=== PATIENT | female | born 1970 | race Caucasian/White ===

== ENCOUNTER 2021-02-06 11:25 | Outpatient (CLI) | payer SELFPAY ==
--- NOTE | 2021-02-06 11:37 | XR_ITS ---
WS: [id number] RIGHT HAND: 3 VIEW(S) TECHNIQUE: PA, oblique and lateral. HISTORY: HAND PAIN, RIGHT COMPARISON: None available. No acute fracture or dislocation. Mild soft tissue edema along the medial hand. No foreign body. XR/XR hand RT min 3V* 00250 IMPRESSION: Mild soft tissue edema along the medial hand. Otherwise negative.
== END 2021-02-06 11:26 | disposition home or self-care (01) ==
PROVIDERS: PCP Nurse Practitioner Family; Visit Provider Nurse Practitioner Family
DX: M79.641 Pain in right hand (principal); R60.0 Localized edema
CPT/HCPCS: 73130

== ENCOUNTER 2021-08-06 19:18 | Emergency (ER) | payer SELFPAY ==
--- NOTE | 2021-08-06 19:27 | XRR_ITS ---
PROCEDURE INFORMATION: Exam: XR Chest Exam date and time: 08/06/2021 7:27 PM Age: 50 years old Clinical indication: Chest wall pain; Additional info: Chest pain TECHNIQUE: Imaging protocol: XR of the chest. Views: 1 view. COMPARISON: CR Chest 1 [place] [id number] 04/04/2019 10:32 PM FINDINGS: Lungs: Unremarkable. No consolidation. Pleural spaces: Unremarkable. No pleural effusion. No pneumothorax. Heart/Mediastinum: Unremarkable. No cardiomegaly. Bones/joints: Unremarkable. XR/XR chest 1V portable [id number] IMPRESSION: No acute findings. Radiation Dose CTDIVOL = (mGy): DLP = (mGy-cm)
--- NOTE | 2021-08-06 19:27 | ECG_ITS ---
[facility] Test Date: 2021-08-06 Pat Name: Patricia East Department: Room: Gender: Female Post Framer: : 1970 Requested By: Vernon Aquino Order Number: [id number] Vikas MD: Lena Regalado M.D. Measurements Intervals [place] Rate: 101 P: 81 MS: 147 QRS: 71 QRSD: 78 T: 67 QT: 358 QTc: 465 Interpretive Statements SINUS TACHYCARDIA Compared to ECG 04/04/2019 23:45:45 Sinus rhythm no longer present Electronically Signed On 08-07-2021 12:10:33 CABINET MAKER by Lena Regalado M.D. [id number]
[2021-08-06 20:10] VITALS: BP 122/73; PULSE 101; RESP 16; TEMP 36.4; O2SAT 98; BMI 24.1
--- NOTE | 2021-08-06 20:18 | ED_ITS ---
HPI - Chest Pain General: Chief Complaint: Chest Pain Stated Complaint: CP Time Seen by Provider: 08/06/21 20:18 History of Present Illness: HPI narrative: Ms. Juarez is a 50-year-old lady with significant past medical history of hypertension, migraines, and tobaccoism who presents emergency department due to chest pain. She has been at her baseline health and earlier today bent over. When she stood up she had sudden onset midsternal chest discomfort which was burning in nature and moderate to severe in intensity. This occurred after a hug. this has since persisted. Is worse with deep inspiration and there is mild radiation with tingling in her l eft fingertips. She has generalized malaise associated with this and over the past few days. She denies other specific changes in health. No similar episodes in the past. No other specific exacerbating or alleviating factors identified. Review of Systems General: Reports: 10 or more systems reviewed and unremarkable except in HPI and below Physical Exam Narrative: EXAM NARRATIVE: GENERAL/CONSTITUTIONAL - well-appearing. No acute distress. Eyes -no scleral icterus, no conjunctival injection ENMT - Atraumatic external nose and ears. Moist mucous membranes NECK - supple. trachea midline CARDIOVASCULAR - regular rate and rhythm. Peripheral pulses 2+ and equal RESPIRATORY -clear to auscultation bilaterally. No retractions or accessory muscle use. ABDOMEN/GI - Nontender/Nondistended. MSK - Extremities without obvious deformity or tenderness to palpation SKIN - Warm, Dry NEURO - alert and appropriately oriented. Moves all extremities equally. Course ED course: - Patient was seen and evaluated by me at bedside - Patient placed on cardiac monitors, IV access obtained - Initial evaluation notable for no acute distress, nontoxic appearance. - Labs notable for no leukocytosis, normal hemoglobin. Metabolic panel notable for hyponatremia and hypochloremia with decreased bicarb and mildly increased anion gap. The exact etiology of this is unclear. The patient reports drinking a lot of water. This finding may explain some of the patient's malaise and generalized symptoms. Delta troponin negative. - Imaging notable for negative chest x-ray - Upon serial reexamination after treatment the patient was similar. I had ordered IV fluids which the patient declined for somewhat unclear reasons. - Based on patient history, evaluation, labs, and imaging as interpreted the most likely cause of the patient's condition is chest pain and hyponatremia both of unclear etiology - The results of ED evaluation were discussed with the patient. I recommended admission and explained heart score risk stratification for major adverse cardiac events. This patient is moderate risk. After discussion and explanation methodology the patient elects for outpatient follow-up which will be ordered via case management. - Patient discharged in satisfactory condition. Vital Signs: Vital signs: Vital Signs Temperature 97.6 F 08/06/21 20:10 Pulse Rate 101 H 08/06/21 22:33 Respiratory Rate 18 08/06/21 22:33 Blood Pressure 122/73 08/06/21 22:33 Pulse Oximetry 93 08/06/21 22:33 MDM - Chest Pain Medical Records: Attestation: I reviewed the patient's medical records. Lab Data: Attestation: I reviewed the patient's lab results. Labs: Lab Results 08/06/21 08/06/21 08/06/21 20:25 20:25 20:25 WBC 5.8 10^3/uL 10^3/ uL (4.0-10.0) RBC 3.84 10^6/uL L 10 ^6/uL (4.1-5.3) Hgb 12.4 g/dL g/dL (11.5-15.3) Hct 33.8 % L % (37.0-47.0) MCV 88.0 fl fl (81-99) MCH 32.3 pg pg (28.0-34.0) MCHC 36.7 g/dL H g/dL (30.0-36.0) RDW 12.7 % % (12.1-15.1) Plt Count 294 10^3/cmm 10^3 /cmm (130-400) MPV 9.2 fL fL (7.4-10.4) Neut % (Auto) 44.2 % % Lymph % (Auto) 40.9 % % [place] % (Auto) 9.1 % % Eos % (Auto) 3.4 % % Baso % (Auto) 2.2 % % Neut # (Auto) 2.58 10^3/uL 10^3 /uL (1.8-7.7) Lymph # (Auto) 2.4 10^3/uL 10^3/ uL (0.8-4.8) [place] # (Auto) 0.5 10^3/uL 10^3/ uL (0.2-0.9) Eos # (Auto) 0.2 10^3/uL 10^3/ uL (0.0-0.8) Baso # (Auto) 0.1 10^3/uL 10^3/ uL (0.0-0.1) Nucleated RBC % (a uto) 0 % % Nucleated RBCs # 0.0 /100WBC /100W BC D-Dimer 0.35 ug/mIFEU ug/ mIFEU (0-0.59) Sodium 125 mmol/L L mmol /L (136-145) Potassium 3.7 mmol/L mmol/L (3.5-5.1) Chloride 91 mmol/L L mmol/ L (98-107) Carbon Dioxide 18 mmol/L L mmol/ L (22-29) Anion Gap 19.7 H (5-19) BUN 4 mg/dL L mg/dL (6-20) Creatinine 0.4 mg/dL L mg/dL (0.5-0.9) GFR Calculation 170.4 mL/min H mL /min (90-130) Glucose 71 mg/dL mg/dL (65-115) Calculated Osmolal ity 255 mOsm/kg L mOs m/kg (285-295) Calcium 8.4 mg/dL L mg/dL (8.5-10.5) Total Bilirubin 0.2 mg/dL mg/dL (0.15-1.2) AST 38 U/L H U/L (0-32) ALT 15 U/L U/L (0-33) Alkaline Phosphata se 66 IU/L IU/L (35-105) Troponin T Baselin e Troponin T 120 Min [place] Delta Troponin T NT-Pro-B Natriuret Pep 190 pg/mL H pg/mL (0-125) Total Protein 7.1 g/dL g/dL (6.6-8.7) Albumin 4.0 g/dL g/dL (3.5-5.2) Globulin 3.1 g/dL g/dL (1.3-4.6) Lipase 31 U/L U/L (13-60) 08/06/21 08/06/21 20:25 22:10 WBC RBC Hgb Hct MCV MCH MCHC RDW Plt Count MPV Neut % (Auto) Lymph % (Auto) [place] % (Auto) Eos % (Auto) Baso % (Auto) Neut # (Auto) Lymph # (Auto) [place] # (Auto) Eos # (Auto) Baso # (Auto) Nucleated RBC % (a uto) Nucleated RBCs # D-Dimer Sodium Potassium Chloride Carbon Dioxide Anion Gap BUN Creatinine GFR Calculation Glucose Calculated Osmolal ity Calcium Total Bilirubin AST ALT Alkaline Phosphata se Troponin T Baselin e 6 ng/L ng/L (0-10) Troponin T 120 Min [place] 6.00 ng/L ng/L (0-10) Delta Troponin T 0 ABS# ABS# (0-10) NT-Pro-B Natriuret Pep Total Protein Albumin Globulin Lipase EKG Data^: EKG 1: Attestation: I personally reviewed and interpreted this EKG as follows: EKG interpretation date: 08/06/21 EKG interpretation time: 20:37 Interpretation: Twelve-lead EKG shows a regular rhythm at a rate of 101. WI interval 147, QRS duration 78, QTc 416. Normal axis. Interpretation: Sinus rhythm. EKG 2: Attestation: I personally reviewed and interpreted this EKG as follows: EKG interpretation date: 08/06/21 EKG interpretation time: 22:07 Interpretation: Twelve-lead EKG shows a regular rhythm at a rate of 88 WI interval 140, QRS duration 81, QTc 426. Normal axis. Interpretation: Sinus rhythm, mildly limited interpretation secondary to baseline artifact. Discharge Plan Discharge Patient Disposition: Home Clinical Impression: Chest pain, Hyponatremia Condition: Stable Discharge Orders: Discharge ED (Routine); Ordered 08/06/21 Ordered By: Oj Wiley Referrals: Tona Head APN [Primary Care Provider] - Discharge Diet: Usual diet Discharge Activity: Resume usual activity Patient Instructions: Chest Pain (ED), Hyponatremia (ED), Opioid Safety Activity Restrictions/Additional Instructions: Thank you for visiting the emergency department. You were seen and evaluated for chest pain. The exact cause of your symptoms is unclear. As discussed, you have a moderate risk HEART score which requires further evaluation, you are electing to have this evaluation in the outpatient setting. Please follow-up for outpatient stress test and echocardiogram. Please follow- up with your primary care provider. Please return to the emergency department for recurrent symptoms, or anything else that you are concerned about and feel needs emergency department evaluation. Coding Level of Care Code ED Wire Drawer for Aristides Rogers
[2021-08-06 20:31] VITALS: BP 122/73; PULSE 101; PULSE 80; RESP 18; O2SAT 93
[2021-08-06 20:52] LABS: Basophils # 0.1 10^3/uL (0.0-0.1); Basophils % 2.2 %; Eosinophils # 0.2 10^3/uL (0.0-0.8); Eosinophils % 3.4 %; Hematocrit 33.8 % (37.0-47.0); Hemoglobin 12.4 g/dL (11.5-15.3); Lymphocytes # 2.4 10^3/uL (0.8-4.8); Lymphocytes % 40.9 %; Mean Corpuscular HGB Conc 36.7 g/dL (30.0-36.0); Mean Corpuscular Hemoglobin 32.3 pg (28.0-34.0); Mean Platelet Volume 9.2 fL (7.4-10.4); Monocytes # 0.5 10^3/uL (0.2-0.9); Monocytes % 9.1 %; Neutrophils # 2.58 10^3/uL (1.8-7.7); Neutrophils % 44.2 %; Nucleated Red Blood Cells % 0 %; Platelet Count 294 10^3/cmm (130-400); Red Blood Count 3.84 10^6/uL (4.1-5.3); Red Cell Distribution Width 12.7 % (12.1-15.1); White Blood Count 5.8 10^3/uL (4.0-10.0)
[2021-08-06 21:05] LABS: D Dimer 0.35 ug/mIFEU (0-0.59)
[2021-08-06] MEDS: morphine 4 mg/mL SDV 1 mL IVP (21:06)
[2021-08-06] MEDS: ondansetron 2 mg/ML SDV 2 mL 4 MG IVP (21:06)
[2021-08-06] MEDS: lidocaine 2% viscous 15 ML, aluminum-mag hydrox-simethicon 30 ML, sucralfate oral liq 1 GM PO (21:07)
[2021-08-06 21:11] LABS: Alanine Aminotransferase 15 U/L (0-33); Alkaline Phosphatase 66 IU/L (35-105); Anion Gap 19.7 (5-19); Aspartate Amino Transferase 38 U/L (0-32); Blood Urea Nitrogen 4 mg/dL (6-20); Calcium 8.4 mg/dL (8.5-10.5); Carbon Dioxide 18 mmol/L (22-29); Chloride 91 mmol/L (98-107); Globulin 3.1 g/dL (1.3-4.6); Glomerular Filtration Rate 170.4 mL/min (90-130); Glucose 71 mg/dL (65-115); Lipase 31 U/L (13-60); Osmolality Calculated 255 mOsm/kg (285-295); Potassium 3.7 mmol/L (3.5-5.1); Sodium 125 mmol/L (136-145); Total Bilirubin 0.2 mg/dL (0.15-1.2); Total Protein 7.1 g/dL (6.6-8.7)
[2021-08-06 21:14] LABS: Troponin(5th) Baseline 6 ng/L (0-10)
--- NOTE | 2021-08-06 21:27 | ECG_ITS ---
[facility] Test Date: 2021-08-06 Pat Name: Patricia East Department: Room: Gender: Female Employment Legal Assistant: : 1970 Requested By: Vernon Aquino Order Number: [id number] Vikas MD: Mer Jacob M.D. Measurements Intervals [place] Rate: 88 P: 64 [place]: 140 QRS: 51 QRSD: 81 T: 62 QT: 381 QTc: 462 Interpretive Statements SINUS RHYTHM Nonspecific T wave changes Compared to ECG 08/06/2021 20:29:19 Sinus tachycardia no longer present Electronically Signed On 08-07-2021 22:00:11 K 9 POLICE OFFICER by Mer Jacob M.D. [email or web address] [id number]
[2021-08-06 21:28] LABS: Creatinine Clr Calc Pharmacy 164.2971
[2021-08-06 22:12] LABS: NT Pro B Type Natriuretic Pept 190 pg/mL (0-125)
[2021-08-06 22:33] VITALS: BP 122/73; PULSE 101; RESP 18; O2SAT 93
[2021-08-06 22:59] LABS: Troponin 5 2HR Delta 0 ABS# (0-10)
--- NOTE | 2021-08-07 13:52 | DCPLANNER ---
merchandise manager had message to schedule an outpatient stress test, and echo for patient. merchandise manager faxed signed order to centralized scheduling, who will call patient with appointment information.
--- NOTE | 2021-08-24 07:44 | DCPLANNER ---
Patient has an out patient stress test and echo scheduled for Friday September 10, 2021 at 9:30. Centralized scheduling will call patient with appointment information.
--- NOTE | 2021-09-14 12:06 | DCPLANNER ---
Patient had a stress test scheduled - patient did not attend appointment. Patient had an echo scheduled - appointment was rescheduled.
== END 2021-08-06 22:43 | disposition home or self-care (01) ==
PROVIDERS: Nurse Practitioner Family; Emergency Provider Emergency Medicine; PCP Nurse Practitioner Family
DX: R07.9 Chest pain, unspecified (principal); E87.1 Hypo-osmolality and hyponatremia; I10 Essential (primary) hypertension
CPT/HCPCS: 71045; 80053; 83690; 83880; 84484; 85025; 85378; 93005; 96361; 96374; 96375; 99284; J2270; J2405

== ENCOUNTER 2022-07-18 12:15 | Outpatient (CLI) | payer SELFPAY ==
--- NOTE | 2022-07-18 12:22 | XR_ITS ---
WS: [id number] Exam: XR chest 2V* [id number] Date/Time of Exam: 07/18/2022 12:23 PM Reason For Exam: BRONCHITIS Comparison 08/06/2021. The lungs are hyperinflated and clear. There are chronic interstitial changes noted. Normal cardiomed iastinal silhouette. No pleural effusions. Bony structures are intact. XR/XR chest 2V* [id number] IMPRESSION: 1. Pulmonary hyperinflation likely indicating obstructive lung disease. Chronic interstitial changes. 2. No acute process noted.
== END 2022-07-18 12:16 | disposition home or self-care (01) ==
LOC: RAD 12:19
PROVIDERS: PCP Nurse Practitioner Family; Visit Provider Nurse Practitioner Family
DX: J40 Bronchitis, not specified as acute or chronic (principal)
CPT/HCPCS: 71046

== ENCOUNTER 2023-10-30 10:02 | Inpatient (IN) | payer MEDICAID, SELFPAY ==
[2023-10-30] VITALS (11 sets, daily range): BP systolic 130–154; BP diastolic 80–91; PULSE 90–114; RESP 16–26; TEMP 36.6–36.9; O2SAT 89–96; BMI 24.1
--- NOTE | 2023-10-30 10:12 | XR_ITS ---
WS: [id number] XR chest 1V portable [id number] REASON FOR EXAM: cp FINDINGS: Mild tortuosity of the thoracic aorta with normal heart size. Diffuse reticular interstitial lung opacities in the mid and lower lung abraham. These findings are si milar to an examination of 07/18/2022, however a chest x-ray of 08/06/2021 demonstrated essentially c lear lung abraham. No significant abnormality of the bony thorax. IMPRESSION: Diffuse lower lung opacities as above. These are of uncertain chronicity being somewhat similar to e 07/18/2022 examination. An acute or subacute pneumonitis or congestive heart failure cannot be excl uded.
--- NOTE | 2023-10-30 10:16 | ED_ITS ---
HPI - SOB/Dyspnea 2 General: Chief Complaint: Shortness of Breath/Dyspnea Stated Complaint: sob Time Seen by Provider: 10/30/23 10:03 Source: patient and EMS Limitations: no limitations History of Present Illness: HPI Narrative: 52-year-old female states that she been having a sharp chest pain in the center of her chest for the last 2 days worse with palpation states it is worse with deep breath as well she is a history of COPD she states she has had some shortness of breath as well she is on 2 L oxygen currently does not wear oxygen at home. She denies any vomiting or diarrhea. Associated symptoms: Reports chest pain; Deny abdominal pain, fever(s), nausea or vomiting Review of Systems 2 Const: Denies: fever(s) or chills ENMT: Denies: throat pain or dental pain Card: Reports: chest pain Resp: Reports: dyspnea GI: Denies: abdominal pain, nausea, vomiting or diarrhea Musc: Denies: neck pain or back pain Skin/Breast: Denies: rash Neuro: Denies: headache(s) Physical Exam 2 Const: COMMON NORMALS: patient oriented x3 HENMT: COMMON NORMALS: normocephalic and atraumatic HEAD & SCALP: n ormocephalic and atraumatic Neck/C-Spine: COMMON NORMALS: full ROM and supple Chest: COMMONS NORMALS: normal inspection of the chest OTHER: point tender in center of chest reproduces pain Resp: COMMON NORMALS: normal respiratory effort, No retractions, No use of accessory muscles and clear to auscultation bilaterally AUSCULTATION: clear to auscultation bilaterally Cardio: COMMON NORMALS: regular rhythm and No murmurs present (Cardio) R ATE: tachycardic RHYTHM: regular rhythm GI: COMMON NORMALS: Normal to inspection, nondistended, normoactive bowel sounds present, Soft to palpation, non-tender and no masses PALPATION: Yes Soft to palpation Extremity: COMMON NORMALS: normal to inspection and full ROM Neuro: COMMON NORMALS: patient oriented x3, moves all extremities and no focal motor deficits Psych: COMMON NORMALS: mental status grossly normal, Normal thought process present and cooperative THOUGHT PROCESS: Normal thought process present Skin: COMMON NORMALS: no rashes or lesions noted and no wounds GENERAL SKIN EXAM: no rashes or lesions noted Course 2 Vital Signs: Vital signs: Vital Signs Temperature 98.3 F 10/30/23 10:04 Pulse Rate 94 10/30/23 13:38 Respiratory Rate 25 H 10/30/23 13:38 Blood Pressure 137/87 10/30/23 13:48 Pulse Oximetry 96 10/30/23 13:38 Oxygen Delivery Me thod Nasal Cannula 10/30/23 13:38 Oxygen Flow Rate 2 10/30/23 13:38 MDM - SOB/Dyspnea Medical Decision Making Patient presents for shortness of breath has a history of COPD CT does show bilateral pneumonia is COVID flu is negative we will send a COVID PCR patient started antibiotics spoke to the hospitalist will admit at this time she is requiring oxygen. Medical Records I reviewed the patient's medical records. Lab Data I reviewed the patient's lab results. 10/30/23 10:32 10/30/23 10:32 Labs/Radiology: Laboratory Results WBC 8.40 10^3/uL (3.29-11.43) 10/30/23 10:32 RBC 3.90 10^6/uL (3.85-5.65) 10/30/23 10:32 Hgb 11.20 g/dL (11.27-16.99) L 10/30/23 10:32 Hct 34.1 % (36-47) L 10/30/23 10:32 MCV 87.4 fl (85-98) 10/30/23 10:32 MCH 28.7 pg (27-33) 10/30/23 10:32 MCHC 32.8 g/dL (30-55) 10/30/23 10:32 RDW 18.0 % (12.1-15.1) H 10/30/23 10:32 Plt Count 359 10^3/cmm (157-399) 10/30/23 10:32 MPV 9.8 fL (7.4-10.4) 10/30/23 10:32 Neut % (Auto) 76.9 % 10/30/23 10:32 Lymph % (Auto) 10.8 % 10/30/23 10:32 [place] % (Auto) 11.3 % 10/30/23 10:32 Eos % (Auto) 0.0 % 10/30/23 10:32 Baso % (Auto) 0.5 % 10/30/23 10:32 Neut # (Auto) 6.46 10^3/uL (1.8-7.7) 10/30/23 10:32 Lymph # (Auto) 0.9 10^3/uL (0.8-4.8) 10/30/23 10:32 [place] # (Auto) 1.0 10^3/uL (0.2-0.9) H 10/30/23 10:32 Eos # (Auto) 0.0 10^3/uL (0.0-0.8) 10/30/23 10:32 Baso # (Auto) 0.0 10^3/uL (0.0-0.1) 10/30/23 10:32 Nucleated RBC % (auto) 0 % 10/30/23 10:32 Nucleated RBCs # 0.0 /100WBC 10/30/23 10:32 D-Dimer 1.85 ug/mLFEU (0-0.59) H 10/30/23 10:32 Sodium 132 mmol/L (136-145) L 10/30/23 10:32 Potassium 4.4 mmol/L (3.5-5.1) 10/30/23 10:32 Chloride 95 mmol/L (98-107) L 10/30/23 10:32 Carbon Dioxide 21 mmol/L (22-29) L 10/30/23 10:32 Anion Gap 20.4 (5-19) H 10/30/23 10:32 BUN 6 mg/dL (6-20) 10/30/23 10:32 Creatinine 0.4 mg/dL (0.5-0.9) L 10/30/23 10:32 GFR Calculation 169.0 mL/min (90-130) H 10/30/23 10:32 Glucose 117 mg/dL (65-115) H 10/30/23 10:32 Calculated Osmolality 273 mOsm/kg (285-295) L 10/30/23 10:32 Calcium 8.8 mg/dL (8.5-10.5) 10/30/23 10:32 Total Bilirubin 0.4 mg/dL (0.15-1.2) 10/30/23 10:32 AST 35 U/L (0-32) H 10/30/23 10:32 ALT 21 U/L (0-33) 10/30/23 10:32 Alkaline Phosphatase 136 U/L (35-105) H 10/30/23 10:32 Troponin T Baseline 9 ng/L (0-10) 10/30/23 10:32 Troponin T 120 Minute 6.00 ng/L (0-10) 10/30/23 12:30 Delta Troponin T -3.00 ABS# (0-10) L 10/30/23 12:30 NT-Pro-B Natriuret Pep 441 pg/mL (0-125) H 10/30/23 10:32 Total Protein 6.9 g/dL (6.6-8.7) 10/30/23 10:32 Albumin 3.6 g/dL (3.5-5.2) 10/30/23 10:32 Globulin 3.3 g/dL (1.3-4.6) 10/30/23 10:32 Influenza Type A Ag negative (Negative) 10/30/23 12:21 Influenza Type B Ag negative (Negative) 10/30/23 12:21 SARS-CoV-2 Ag (Rapid) negative (Negative) 10/30/23 12:21 All radiology interpretation(s) finalized by discharge EKG Data EKG 1: I personally reviewed and interpreted this EKG as follows: EKG Interpretation Date: 10/30/23 EKG interpretation time: 10:22 Interpretation: sinus tach hr [address] elevation qrs 77 qtc 405 Discharge Plan Discharge Patient Disposition: Admitted As Inpatient Clinical Impression: Acute exacerbation of chronic obstructive airways disease, Community acquired pneumonia Condition: Stable Prescriptions: No Action fluoxetine 40 mg capsule 40 mg PO BID cetirizine 10 mg tablet 10 mg PO QAM buspirone 10 mg tablet 10 mg PO BID PRN (Reason: Anxiety) omeprazole 20 mg capsule,delayed release(DR/EC) 20 mg PO QAM albuterol sulfate 90 mcg/actuation Hfa Aerosol Inhaler 2 puff INHALATION QID PRN (Reason: Shortness Of Breath) topiramate 100 mg tablet 100 mg PO BEDTIME PRN (Reason: Headache) Excedrin Migraine 250-250-65 mg Tablet 2 tab PO Q6H PRN (Reason: Migraine Headache) Referrals: Tona Head APN [Primary Care Provider] - Coding Level of Care Code ED Grinding Machine Operator for g Ken
[2023-10-30] MEDS: ondansetron 2 mg/ML SDV 2 mL 4 MG IVP (10:20)
[2023-10-30] MEDS: morphine 4 mg/mL SDV 1 mL IVP (10:20)
[2023-10-30] MEDS: methylPREDNISolone sod succ 125 mg/2 mL INJ IVP (10:20)
--- NOTE | 2023-10-30 10:22 | ECG_ITS ---
[facility] Test Date: 2023-10-30 Pat Name: Patricia East Department: Room: Gender: Female Scientific Informatics Project Leader: : 1970 Requested By: Clarence Franco Order Number: [id number] Vikas MD: Dany Way M.D. Measurements Intervals [place] Rate: 118 P: 56 TN: 139 QRS: 28 QRSD: 77 T: 52 QT: 335 QTc: 470 Interpretive Statements SINUS TACHYCARDIA Compared to ECG 08/06/2021 22:01:53 Sinus rhythm no longer present T-wave abnormality no longer present Electronically Signed On 10-30-2023 11:38:03 DELIVERY REPRESENTATIVE by Dany Way M.D. [email or web address] state hospitalFoundry Newco XIIlima city hospitalKixer/store/OM/[id number]
[2023-10-30] MEDS: ipratropium-albuterol 3 mL Neb INHALATION ×2 (10:29→21:06)
[2023-10-30 10:47] LABS: Basophils % 0.5 %; Hematocrit 34.1 % (36-47); Lymphocytes # 0.9 10^3/uL (0.8-4.8); Lymphocytes % 10.8 %; Mean Corpuscular HGB Conc 32.8 g/dL (30-55); Mean Corpuscular Hemoglobin 28.7 pg (27-33); Mean Corpuscular Volume 87.4 fl (85-98); Mean Platelet Volume 9.8 fL (7.4-10.4); Monocytes % 11.3 %; Neutrophils # 6.46 10^3/uL (1.8-7.7); Neutrophils % 76.9 %; Nucleated Red Blood Cells % 0 %; Platelet Count 359 10^3/cmm (157-399)
--- NOTE | 2023-10-30 10:56 | PC.PHAR ---
pt states she takes care of her own medications-pt states she has a build up of buspar 10mg bid prn and topiramate 100mg hs both filled 04/01/23 30d/s pt states she takes both prn pt states she ran out of her topiramate 2 days ago-pt states she saw the dr today and is suppose to be getting refills on both those medications
[2023-10-30 10:59] LABS: D Dimer 1.85 ug/mLFEU (0-0.59)
--- NOTE | 2023-10-30 11:03 | CT_ITS ---
WS: [id number] CTA OF THE CHEST WITH PULMONARY EMBOLISM PROTOCOL TECHNIQUE: High-resolution contrast enhanced CTA of the chest with coronal and sagittal reformatted i lettys with pulmonary embolism protocol. MIP images are also reviewed. CLINICAL INFORMATION: sob COMPARISON: None. DLP: 353.[address] scans at [facility] use at least one of these dose optimization techniques: automated e xposure control; mA and/or kV adjustment per patient size (includes targeted exams where dose is matc hed to clinical indication); or iterative reconstruction. FINDINGS: Proximal main pulmonary arteries are normal. Normal segmental and subsegmental pulmonary ar teries. No evidence of pulmonary embolus. Slightly prominent anterior mediastinal and parabronchial l ymph nodes likely reactive. Normal caliber thoracic aorta. No axillary lymphadenopathy. Celiac and SMA are patent in the upper abdomen. Adrenal glands are normal. Small esophageal hernia. M ild thoracic kyphosis. Mild chronic appearing compression of the superior endplate at T11. Hazy groundglass infiltrates in the perihilar regions and lower lobes bilaterally with suggestion of subpleural honeycombing suspicious for interstitial lung disease versus paraseptal emphysema.. Recom mend pulmonary consultation and correlation with pulmonary function studies. Also recommend correlati on for acute viral pneumonia including COVID-pneumonia. Slight bibasilar atelectasis. IMPRESSION: 1. No evidence of pulmonary embolus. 2. Hazy bilateral groundglass infiltrates in the perihilar regions and both lower lobes. Recommend c orrelation for viral pneumonia and COVID-pneumonia. 3. Paraseptal emphysematous change or subpleural honeycombing. Recommend pulmonary consultation for interstitial lung disease. 4. No other acute findings.
[2023-10-30 11:05] LABS: Troponin(5th) Baseline 9 ng/L (0-10)
[2023-10-30 11:13] LABS: Alanine Aminotransferase 21 U/L (0-33); Albumin Level 3.6 g/dL (3.5-5.2); Alkaline Phosphatase 136 U/L (35-105); Anion Gap 20.4 (5-19); Aspartate Amino Transferase 35 U/L (0-32); Blood Urea Nitrogen 6 mg/dL (6-20); Calcium 8.8 mg/dL (8.5-10.5); Carbon Dioxide 21 mmol/L (22-29); Chloride 95 mmol/L (98-107); Globulin 3.3 g/dL (1.3-4.6); Glucose 117 mg/dL (65-115); NT Pro B Type Natriuretic Pept 441 pg/mL (0-125); Osmolality Calculated 273 mOsm/kg (285-295); Potassium 4.4 mmol/L (3.5-5.1); Sodium 132 mmol/L (136-145); Total Bilirubin 0.4 mg/dL (0.15-1.2); Total Protein 6.9 g/dL (6.6-8.7)
[2023-10-30] MEDS: iohexol 350 mg/mL 500 mL Btl (per mL) IV (11:42)
--- NOTE | 2023-10-30 12:12 | ECG_ITS ---
[facility] Test Date: 2023-10-30 Pat Name: Patricia East Department: Room: Gender: Female Wool Hat Finisher: : 1970 Requested By: Clarence Franco Order Number: [id number] Vikas MD: Dany Way M.D. Measurements Intervals [place] Rate: 95 P: 63 DC: 132 QRS: 29 QRSD: 77 T: 54 QT: 379 QTc: 477 Interpretive Statements SINUS RHYTHM Compared to ECG 10/30/2023 10:22:04 Sinus tachycardia no longer present Electronically Signed On 10-31-2023 9:36:12 BLEACHER PULP by Dany Way M.D. [email or web address] [id number]
[2023-10-30 12:51] LABS: Influenza A by IFA negative (Negative); Influenza B by IFA negative (Negative)
[2023-10-30 12:53] LABS: SARS Covid-2 Antigen negative (Negative)
[2023-10-30] MEDS: cefTRIAXone 1,000 MG in sodium chloride 0.9% (plus) 50 ML 100 MG IV ×2 (13:01→15:49)
[2023-10-30] MEDS: azithromycin 500 MG in sodium chloride 0.9% 250 ML 250 MG IV (13:46)
[2023-10-30] MEDS: enoxaparin 40 mg/0.4 mL Syringe SUBCUT (15:37)
[2023-10-30] MEDS: sodium chloride 0.9% 1,000 ML 50 ML IV (15:37)
[2023-10-30 16:02] LABS: Adenovirus Not Detected (NOT DETECT); Chlamydia Pneumoniae Not Detected (NOT DETECT); Coronavirus 229E,HKU1,NL63,OC4 Not Detected (NOT DETECT); Human Metapneumovirus Not Detected (NOT DETECT); Human Rhinovirus/Enterovirus Not Detected (NOT DETECT); Influenza A Not Detected (NOT DETECT); Influenza A H1 Not Detected (NOT DETECT); Influenza A H1-2009 Not Detected (NOT DETECT); Influenza A H3 Not Detected (NOT DETECT); Influenza B Not Detected (NOT DETECT); Mycoplasma Pneumoniae Not Detected (NOT DETECT); Parainfluenza Virus Type 1 Not Detected (NOT DETECT); Parainfluenza Virus Type 2 Not Detected (NOT DETECT); Parainfluenza Virus Type 3 Not Detected (NOT DETECT); Parainfluenza Virus Type 4 Not Detected (NOT DETECT); Respiratory Syncytial Virus A Not Detected (NOT DETECT); Respiratory Syncytial Virus B Not Detected (NOT DETECT); SARS-COV-2 Not Detected (NOT DETECT)
[2023-10-30] MEDS: fluoxetine 20 mg Capsule 40 MG PO (17:02)
--- NOTE | 2023-10-30 17:06 | P.HP_ITS ---
Providers/Chief Complaint 2 Admitting Physician: Kenroy Adamson MD Primary Care Provider: Tona Head APN Chief Complaint: sob History of Present Illness Patricia East is a 52 year old female with past medical COPD, bipolar disorder who presents to the ER today because of worsening difficulty breathing over the last few weeks gotten acutely worse,. Patient initiated having expectoration before but none currently. Usually not on oxygen. In the ER required up to 4 L to maintain saturation of 90%. Denies any nausea, vomiting, headache, fever, sick contacts, recent travel or past hospitalization because of difficulty in breathing. States she smokes slightly more than a pack a day for many years. Review of Systems 2 General: Reports: 10 or more systems reviewed and unremarkable except in HPI and below Const: Denies: fever(s), chills, body aches, change in appetite, change in weight, malaise, night sweats, diaphoresis, change in sleep pattern, daytime sleepiness or snoring Eyes: Denies: change in vision, blurry vision, photophobia, eye discomfort or eye discharge ENMT: Denies: throat pain, enlarged tonsils, hoarseness, mouth pain, oral sores, dry mouth, tinnitus, nasal congestion or post nasal drip Card: Denies: chest pain, palpitations, irregular heart rhythm, edema, swelling of feet/ankles, lightheadedness, syncope, pre-syncope, dyspnea on exertion, orthopnea, leg pain with exertion or acrocyanosis Resp: Denies: dyspnea, productive cough, non-productive cough, wheezing, stridor, pain on inspiration, change in phlegm color, hemoptysis or chest congestion GI: Denies: abdominal pain, nausea, vomiting, hematemesis, coffee ground emesis, dysphagia, heartburn, diarrhea, constipation, bloating, GI cramping, change in bowel habits, pain on defecation, hematochezia or melena : Denies: flank pain, dysuria, urinary frequency, urinary urgency, urinary hesitancy, nocturia or hematuria Musc: Denies: neck pain, back pain, extremity pain, joint pain, joint swelling, joint redness, joint stiffness or limited range of motion Neuro: Denies: headache(s), numbness in extremities, weakness in extremities, sensory changes, lack of coordination, difficulty walking, frequent falls, dizziness, vertigo, confusion, Slurred speech present, difficulty communicating thoughts or seizure-like activity Psych: Denies: anxiety, depression, mood swings, panic attacks, hopelessness or irritability Endo: Denies: polyuria, polydipsia, tired all the time, cold intolerance, excessive sweating, flushing or heat intolerance Raj/Lymph: Denies: easy bruising or easy bleeding All/Imm: Denies: tongue swelling, facial swelling or acute wheezing Medications/Allergies Home Medications Medication Instructions Recorded Confirmed Last Taken Type albuterol sulfate 90 mcg/actuation 2 puff inhalation QID PRN 10/30/23 10/30/23 Unknown History aerosol inhaler Shortness Of Breath vokvgmz-frllpkmrvcvvm-efhyifsf 250 2 tab PO Q6H PRN Migraine Headache 10/30/23 10/30/23 Unknown History mg-250 mg-65 mg tablet (Excedrin Migraine) buspirone 10 mg tablet 10 mg PO BID PRN Anxiety 10/30/23 10/30/23 Unknown History cetirizine 10 mg tablet 10 mg PO QAM 10/30/23 10/30/23 10/29/23 History fluoxetine 40 mg capsule 40 mg PO BID 10/30/23 10/30/23 10/29/23 History omeprazole 20 mg capsule,delayed 20 mg PO QAM 10/30/23 10/30/23 Unknown History release topiramate 100 mg tablet 100 mg PO BEDTIME PRN Headache 10/30/23 10/30/23 2 Days Ago History ~10/28/23 last filled 04/01/23 Allergies Allergy/AdvReac Type Severity Reaction Status Date / Time lisinopril Allergy ALGY-Swell Verified 10/30/23 10:48 Lip/Tongue/Throat PFSH Acute 2 PFSH: Medical History (Updated 10/30/23 @ 17:21 by Kenroy Adamson MD) Anxiety Bipolar 1 disorder COPD (chronic obstructive pulmonary disease) Family History (Updated 10/30/23 @ 17:21 by Kenroy Adamson MD) Other CAD (coronary artery disease) Social History (Updated 10/30/23 @ 17:23 by Kenroy Adamson MD) Smoking and tobacco/nicotine status: current every day tobacco/nicotine user cigarettes Packs smoked per day: 1 Caregiver/support person: Yes Lives independently: Yes Household members: significant other Housing: House Current occupational status: previously employed Vitals/I&O/Wt Last Vital Signs Temp 98.3 F 10/30/23 10:04 Pulse 90 10/30/23 16:00 Resp 16 10/30/23 16:00 BP 132/85 10/30/23 16:00 Pulse Ox 92 10/30/23 16:00 O2 Del Method Nasal Cannula 10/30/23 16:00 O2 Flow Rate 4 10/30/23 16:00 10/30/23 10/30/23 10/30/23 06:59 14:59 22:59 Intake Total 50 / 50 300 / 350 Balance 50 / 50 300 / 350 Weight last 48 hrs Weight 75.75 kg Weight 65.771 kg Physical Exam 2 Narrative: General: No acute distress, AO x3 HEENT: PERRLA, pupils bilaterally equal and reactive Chest: Bilateral bronchial breath sounds all over lung abraham with occasional rhonchi all over with coarse crackles more so in right and left CVS: S1-S2 regular, no murmurs, no tachycardia, no gallops, no rubs Abdomen: Soft, nontender, no organomegaly, bowel sounds present Neuro: No focal deficits, no facial deformity, AO x3, power 5/5 in all limbs Data 10/31/23 05:54 10/31/23 05:54 Micro: Microbiology 10/30/23 13:32 Blood Culture - Preliminary Blood SPECIMEN COLLECTED 10/30/23 13:30 Blood Culture - Preliminary Blood SPECIMEN COLLECTED A&P Assessment and plan (1) Respiratory failure: Most likely in setting of COPD exacerbation. CT chest results appreciated consistent with pneumonitis. Patient chronic smoker but denies any vaping. DuoNebs every 4 hour, Pulmicort twice daily. Start on Solu-Medrol 40 mg every 6 hourly. Oxygen supplementation keeping saturation over 88%. Check respiratory viral panel, sputum culture, urine Legionella, bacterial antigen. Empirically start patient on IV ceftriaxone and oral Levaquin for now. Will de- escalate as per result of sputum culture. Check MRSA panel. (2) Acute pneumonitis: (3) Acute exacerbation of chronic obstructive airways disease: Plan Full code Cardiac diet Protonix for PUD prophylaxis Lovenox for DVT prophylaxis Attestations 2 Medical Necessity Statement*: Admission for more than 2 midnights for management of hypoxic respiratory failure in setting of COPD exacerbation and acute pneumonitis in a patient with chronic COPD Diagnoses Respiratory failure J96.90 Acute pneumonitis J98.4 Acute exacerbation of chronic obstructive airways disease J44.1
[2023-10-30 17:19] LABS: Procalcitonin 4.69 ng/mL (0-0.5); Thyroid Stimulating Hormone 0.96 uIU/mL (0.27-4.20); Vitamin B12 382 pg/mL (232-1245)
[2023-10-30 17:29] LABS: Iron 15 ug/dL (37-145); Percent Saturation 5.9 % (20-50); Total Iron Binding Capacity 251 mcg/dl; Unsaturated Iron Binding 236 ug/dL (112-347)
--- NOTE | 2023-10-30 17:41 | ECG_ITS ---
[facility] Test Date: 2023-10-30 Pat Name: Patricia East Department: Room: 279 Gender: Female Knitting Machine Operator: : 1970 Requested By: Clarence Franco Order Number: [id number] Vikas MD: Dany Way M.D. Measurements Intervals [place] Rate: 91 P: 59 CA: 131 QRS: 33 QRSD: 86 T: 50 QT: 410 QTc: 506 Interpretive Statements SINUS RHYTHM Compared to ECG 10/30/2023 12:26:09 No significant changes Electronically Signed On 10-31-2023 9:31:06 HOME CARE COORDINATOR by Dany Way M.D. [id number]
[2023-10-30] MEDS: levoFLOXacin 750 mg Tablet PO (17:53)
[2023-10-30] MEDS: methylPREDNISolone sod succ 40 mg/mL INJ IVP ×2 (17:58→23:31)
[2023-10-30 20:43] LABS: Adenovirus Not Detected (NOT DETECT); Chlamydia Pneumoniae Not Detected (NOT DETECT); Coronavirus 229E,HKU1,NL63,OC4 Not Detected (NOT DETECT); Human Metapneumovirus Not Detected (NOT DETECT); Human Rhinovirus/Enterovirus Not Detected (NOT DETECT); Influenza A Not Detected (NOT DETECT); Influenza A H1 Not Detected (NOT DETECT); Influenza A H1-2009 Not Detected (NOT DETECT); Influenza A H3 Not Detected (NOT DETECT); Influenza B Not Detected (NOT DETECT); Mycoplasma Pneumoniae Not Detected (NOT DETECT); Parainfluenza Virus Type 1 Not Detected (NOT DETECT); Parainfluenza Virus Type 2 Not Detected (NOT DETECT); Parainfluenza Virus Type 3 Not Detected (NOT DETECT); Parainfluenza Virus Type 4 Not Detected (NOT DETECT); Respiratory Syncytial Virus A Not Detected (NOT DETECT); Respiratory Syncytial Virus B Not Detected (NOT DETECT); SARS-COV-2 Not Detected (NOT DETECT)
[2023-10-30] MEDS: budesonide 0.5 mg/2 mL Neb INHALATION (21:11)
[2023-10-30 22:04] LABS: Add Urine Microscopic? NO; Charge for UA Resulting for Rev
[2023-10-30 22:12] LABS: Urine Color Yellow (Yellow)
[2023-10-30 22:13] LABS: Bilirubin Urine Neg (Negative); Blood Urine Neg (Negative); Glucose Urine UA Norm (Normal); Ketones Urine Negative (Negative); Leukocyte Esterase Urine Negative (Negative); Nitrate Urine Negative (Negative); Protein Urine Neg (Negative); Specific Gravity, Urine 1.005 (1.005-1.030); Urine Appearance Clear (CLEAR); Urobilinogen Urine Norm (Negative); pH Urine 7 (5-7)
[2023-10-31] VITALS (19 sets, daily range): BP systolic 134–158; BP diastolic 80–96; PULSE 88–112; RESP 15–20; TEMP 36.6–37; O2SAT 89–95; BMI 29.0; BMI 28.9
[2023-10-31] MEDS: ipratropium-albuterol 3 mL Neb INHALATION ×4 (00:21→11:16)
[2023-10-31] MEDS: morphine 4 mg/mL SDV 1 mL 2 MG IVP ×4 (04:31→20:41)
[2023-10-31] MEDS: methylPREDNISolone sod succ 40 mg/mL INJ IVP ×4 (05:46→23:35)
[2023-10-31 06:04] LABS: Hematocrit 30.4 % (36-47); Lymphocytes # 0.4 10^3/uL (0.8-4.8); Lymphocytes % 5.2 %; Mean Corpuscular HGB Conc 31.9 g/dL (30-55); Mean Corpuscular Volume 87.6 fl (85-98); Monocytes # 0.8 10^3/uL (0.2-0.9); Monocytes % 10.2 %; Neutrophils # 6.93 10^3/uL (1.8-7.7); Neutrophils % 83.9 %; Nucleated Red Blood Cells % 0 %; Platelet Count 345 10^3/cmm (157-399); Red Blood Count 3.47 10^6/uL (3.85-5.65); Red Cell Distribution Width 17.8 % (12.1-15.1); White Blood Count 8.26 10^3/uL (3.29-11.43)
[2023-10-31 06:19] LABS: Estmated Average Glucose 88; Hemoglobin A1C 4.7 % (4.0-6.0)
[2023-10-31 06:31] LABS: Alanine Aminotransferase 16 U/L (0-33); Albumin Level 3.2 g/dL (3.5-5.2); Alkaline Phosphatase 110 U/L (35-105); Anion Gap 18.9 (5-19); Aspartate Amino Transferase 23 U/L (0-32); Blood Urea Nitrogen 7 mg/dL (6-20); Calcium 8.2 mg/dL (8.5-10.5); Carbon Dioxide 20 mmol/L (22-29); Chloride 92 mmol/L (98-107); Globulin 3.7 g/dL (1.3-4.6); Glomerular Filtration Rate 235.5 mL/min (90-130); Glucose 152 mg/dL (65-115); Magnesium 1.9 mg/dL (1.7-2.3); Osmolality Calculated 265 mOsm/kg (285-295); Phosphorus 2.4 mg/dL (2.5-4.5); Potassium 3.9 mmol/L (3.5-5.1); Sodium 127 mmol/L (136-145); Total Bilirubin 0.2 mg/dL (0.15-1.2); Total Protein 6.9 g/dL (6.6-8.7)
[2023-10-31 06:33] LABS: Chol HDL Ratio 1.85 mg/dL (0.0-4.40); Cholesterol 135 mg/dL (0-200); HDL Cholesterol 73 mg/dL (60-100); LDL Cholesterol Calculated 46 mg/dL (50-129); LDL HDL Ratio 0.63 RATIO (0.00-3.22); Triglycerides 82 mg/dL (0-150)
[2023-10-31 06:34] LABS: Procalcitonin 3.46 ng/mL (0-0.5)
[2023-10-31 07:02] LABS: Folate Level 11.1 ng/mL (4.8-37.3)
[2023-10-31] MEDS: budesonide 0.5 mg/2 mL Neb INHALATION ×2 (08:23→20:17)
--- NOTE | 2023-10-31 09:20 | PC.CHAP ---
Pastoral Care Encounter/Spiritual Assessment Type of Contact [] Declined parts sales counterperson visit [] Patient/Family/Request visit [] Outpatient visit [] Follow-up visit [] Physician referral [] Code/Alert [] Routine visit [] Staff referral [] Actively dying [x] Patient sleeping [] Family support [] [] Out of room [] Palliative care [] [] Receiving care in room [] Pre-surgical visit [] Trauma [] Long length of stay [] ICU visit [] Other: Relational/Emotional Strength [] Patient feels connected with others/family/visitors/staff [] Distress [] Loneliness/isolation [] Abandonment Spirituality of Patient [] Person of Keely [] Attends Jew of their Keely [] Believes in Prayer [] Reads Bible or Restoration materials [] There are Spiritual issues to be addressed Isolation Washer Interventions [] Prayer [] Active listening [] Non-anxious presence [] Spiritual/emotional support [] Crisis/trauma care [] Spiritual counseling [] Bereavement support [] Provided bereavement packet [] Provided Bible/devotional materials [] Provided toy/stuffed animal, coloring book to patient or family member [] Provided Communion [] Anointing/[place] [] Salvation [] Completed spiritual assessment [] Other: Impact on Illness or Injury [] Angry [] Fearful [] Anxious [] Often cries [] Exhaustion [] Unable to work [] Unable to attend tenriism [] Unable to walk/stand [] Unable to read [] Unable to drive [] Unable to eat/drink [] Unable to sleep [] Unable to be with family [] Patient intubated [] Other: Summary Time spent with patient
[2023-10-31] MEDS: levoFLOXacin 750 mg Tablet PO (10:43)
[2023-10-31] MEDS: fluoxetine 20 mg Capsule 40 MG PO ×2 (10:43→17:04)
[2023-10-31] MEDS: pantoprazole DR 40 mg Tablet PO (10:44)
--- NOTE | 2023-10-31 13:57 | P.PN_ITS ---
Subjective 2 Subjective: No acute events overnight. Seen sitting up in bed today. States feeling slightly better though still requiring up to 4 L patient. Denies any nausea, vomiting, headache. Vitals/I&O/Wt Last Vital Signs Temp 97.9 F 10/31/23 12:08 Pulse 112 H 10/31/23 12:08 Resp 20 H 10/31/23 12:08 BP 134/80 10/31/23 12:08 Pulse Ox 90 10/31/23 12:08 O2 Del Method Nasal Cannula 10/31/23 12:08 O2 Flow Rate 4 10/31/23 12:08 10/30/23 10/31/23 10/31/23 22:59 06:59 14:59 Intake Total 540 / 590 500 / 1090 1590 / 1590 Output Total 1075 / 1075 Balance 540 / 590 500 / 1090 515 / 515 Weight last 48 hrs Weight 79.243 kg Weight 75.75 kg Weight 65.771 kg Physical Exam 2 Narrative: General: No acute distress, AO x3 HEENT: PERRLA, pupils bilaterally equal and reactive Chest: Bilateral bronchial breath sounds all over lung abraham with occasional rhonchi all over with coarse crackles more so in right and left CVS: S1-S2 regular, no murmurs, no tachycardia, no gallops, no rubs Abdomen: Soft, nontender, no organomegaly, bowel sounds present Neuro: No focal deficits, no facial deformity, AO x3, power 5/5 in all limbs Data 10/31/23 05:54 10/31/23 05:54 Micro: Microbiology 10/30/23 13:32 Blood Culture - Preliminary Blood NEGATIVE TO DATE 10/30/23 13:30 Blood Culture - Preliminary Blood NEGATIVE TO DATE 10/30/23 21:34 Legionella Urinary Antigen - Final Unknown Source A&P Assessment and plan (1) Respiratory failure: Most likely in setting of COPD exacerbation. CT chest results appreciated consistent with pneumonitis. Patient chronic smoker but denies any vaping. Patient having mild tachycardia. Switch DuoNebs to ipratropium, Xopenex every 4 hour, Pulmicort twice daily. Continue with Solu-Medrol 40 mg every 6 hourly. Will plan to wean within next 24 hours Oxygen supplementation keeping saturation over 88%. 40 mg oral Lasix. Respiratory viral panel negative, sputum culture not yet collected, MRSA pending, urine Legionella and bacterial antigen negative. Continue with empiric IV ceftriaxone and oral Levaquin for now. Will de- escalate as per result of sputum culture. (2) Acute pneumonitis: (3) Acute exacerbation of chronic obstructive airways disease: Plan Hyponatremia: Seen today down to 127. Patient asymptomatic. Check urine lites. Lasix as above. Continue to monitor daily. If needed will start on oral salt tablets. Full code Cardiac diet Protonix for PUD prophylaxis Lovenox for DVT prophylaxis Attestations 2 Medical Necessity Statement*: Requires further hospitalization for management of respiratory failure in setting of COPD exacerbation and pneumonitis Diagnoses Respiratory failure J96.90 Acute pneumonitis J98.4 Acute exacerbation of chronic obstructive airways disease J44.1
[2023-10-31] MEDS: FUROsemide 40 mg Tablet PO (14:40)
[2023-10-31] MEDS: enoxaparin 40 mg/0.4 mL Syringe SUBCUT (14:41)
[2023-10-31] MEDS: cefTRIAXone 1,000 MG in sodium chloride 0.9% (plus) 50 ML 100 MG IV (14:41)
[2023-10-31] MEDS: levalbuterol 0.63 mg/3 mL Neb INHALATION ×2 (16:17→20:17)
[2023-10-31] MEDS: ipratropium 0.5 mg/2.5 mL Neb INHALATION ×2 (16:17→20:17)
[2023-10-31 17:03] LABS: Potassium, Radom Urine 18 mmol/L; Urine Random Chloride 48 mmol/L; Urine Random Sodium 38 mmol/L
[2023-10-31] MEDS: ondansetron 2 mg/ML SDV 2 mL 4 MG IVP (19:53)
[2023-11-01] VITALS (22 sets, daily range): BP systolic 131–155; BP diastolic 73–85; PULSE 73–110; RESP 16–22; TEMP 36.6–37; O2SAT 87–97; BMI 29.0
[2023-11-01] MEDS: levalbuterol 0.63 mg/3 mL Neb INHALATION ×6 (00:49→20:29)
[2023-11-01] MEDS: ipratropium 0.5 mg/2.5 mL Neb INHALATION ×6 (00:49→20:29)
[2023-11-01] MEDS: morphine 4 mg/mL SDV 1 mL 2 MG IVP ×4 (03:14→21:48)
[2023-11-01] MEDS: methylPREDNISolone sod succ 40 mg/mL INJ IVP ×3 (05:19→17:39)
[2023-11-01] MEDS: budesonide 0.5 mg/2 mL Neb INHALATION ×2 (07:27→20:29)
[2023-11-01] MEDS: pantoprazole DR 40 mg Tablet PO (09:30)
[2023-11-01] MEDS: fluoxetine 20 mg Capsule 40 MG PO ×2 (09:30→17:39)
[2023-11-01] MEDS: levoFLOXacin 750 mg Tablet PO (09:30)
--- NOTE | 2023-11-01 11:55 | PC.CHAP ---
Pastoral Care Encounter/Spiritual Assessment Type of Contact [] Declined waterproofer helper visit [] Patient/Family/Request visit [] Outpatient visit [] Follow-up visit [] Physician referral [] Code/Alert [] Routine visit [] Staff referral [] Actively dying [] Patient sleeping [] Family support [] [] Out of room [] Palliative care [] [] Receiving care in room [] Pre-surgical visit [] Trauma [] Long length of stay [] ICU visit [] Other: Relational/Emotional Strength [] Patient feels connected with others/family/visitors/staff [] Distress [] Loneliness/isolation [] Abandonment Spirituality of Patient [x] Person of Keely [] Attends Jainism of their Keely [] Believes in Prayer [] Reads Bible or Scientologist materials [] There are Spiritual issues to be addressed Cnc Router Operator Interventions [x] Prayer [] Active listening [] Non-anxious presence [] Spiritual/emotional support [] Crisis/trauma care [] Spiritual counseling [] Bereavement support [] Provided bereavement packet [] Provided Bible/devotional materials [] Provided toy/stuffed animal, coloring book to patient or family member [] Provided Communion [] Anointing/[place] [] Salvation [] Completed spiritual assessment [] Other: Impact on Illness or Injury [] Angry [] Fearful [] Anxious [] Often cries [] Exhaustion [] Unable to work [] Unable to attend presybeterian [] Unable to walk/stand [] Unable to read [] Unable to drive [] Unable to eat/drink [] Unable to sleep [] Unable to be with family [] Patient intubated [] Other: Summary Prayed with Patient and 1 family member Time spent with patient
[2023-11-01 14:55] LABS: Methicillin-Resist S.aureu PCR NOT DETECTED (NOT DETECTED)
--- NOTE | 2023-11-01 15:31 | P.PN_ITS ---
Subjective 2 Subjective: No acute events overnight. Seen with daughter at bedside today. Patient states she is feeling a lot better. Denies any nausea, vomiting, headache. Down to 2 L of oxygen supplementation today saturating at 90-92. Vitals/I&O/Wt Last Vital Signs Temp 98.6 F 11/01/23 04:00 Pulse 91 11/01/23 15:29 Resp 18 11/01/23 15:22 BP 148/84 11/01/23 10:47 Pulse Ox 92 11/01/23 15:22 O2 Del Method Nasal Cannula 11/01/23 15:22 O2 Flow Rate 2 11/01/23 15:22 11/01/23 11/01/23 11/01/23 06:59 14:59 22:59 Intake Total 660 / 660 Balance 660 / 660 Weight last 48 hrs Weight 78.982 kg Weight 78.925 kg Weight 79.243 kg Physical Exam 2 Narrative: General: No acute distress, AO x3 HEENT: PERRLA, pupils bilaterally equal and reactive Chest: Bilateral bronchial breath sounds all over lung abraham with occasional rhonchi all over with coarse crackles more so in right and left CVS: S1-S2 regular, no murmurs, no tachycardia, no gallops, no rubs Abdomen: Soft, nontender, no organomegaly, bowel sounds present Neuro: No focal deficits, no facial deformity, AO x3, power 5/5 in all limbs Data 10/31/23 05:54 10/31/23 05:54 Micro: Microbiology 10/30/23 21:34 Bacterial Antigens - Final Urine Kidney 10/30/23 13:32 Blood Culture - Preliminary Blood NEGATIVE TO DATE 10/30/23 13:30 Blood Culture - Preliminary Blood NEGATIVE TO DATE A&P Assessment and plan (1) Respiratory failure: Most likely in setting of COPD exacerbation. CT chest results appreciated consistent with pneumonitis. Patient chronic smoker but denies any vaping. Patient having mild tachycardia. Switch DuoNebs to ipratropium, Xopenex every 4 hour, Pulmicort twice daily. Continue with Solu-Medrol 40 mg every 6 hourly. Will plan to wean within next 24 hours Oxygen supplementation keeping saturation over 88%. 40 mg oral Lasix. Respiratory viral panel negative, sputum culture not yet collected, MRSA pending, urine Legionella and bacterial antigen negative. Continue with empiric IV ceftriaxone and oral Levaquin for now. Will de- escalate as per result of sputum culture. (2) Acute pneumonitis: (3) Acute exacerbation of chronic obstructive airways disease: Plan Hyponatremia: Seen today down to 127. Patient asymptomatic. Check urine lites. Lasix as above. Continue to monitor daily. If needed will start on oral salt tablets. Full code Cardiac diet Protonix for PUD prophylaxis Lovenox for DVT prophylaxis Plan for the day: Continue with nebulization treatment. Wean Solu-Medrol to 40 mg every 8 hourly. Continue with IV antibiotic and oral Levaquin. Sputum culture still not collected. Blood cultures so far negative. Repeat Lasix 40 mg orally. Wean down oxygen supplementation keeping saturation over 90. Goal blood pressure less than 140/90 mmHg. Blood pressure is elevated. Add amlodipine 5 mg oral daily. Discharge plan: Plan to discharge in next 24 hours the patient's oxygen supplementation remained stable. Will need home O2 evaluation prior to discharge. Attestations 2 Medical Necessity Statement*: Hypoxia in setting of COPD exacerbation with concerns for pneumonitis Diagnoses Respiratory failure J96.90 Acute pneumonitis J98.4 Acute exacerbation of chronic obstructive airways disease J44.1
[2023-11-01 16:27] LABS: Alanine Aminotransferase 19 U/L (0-33); Albumin Level 3.5 g/dL (3.5-5.2); Alkaline Phosphatase 107 U/L (35-105); Aspartate Amino Transferase 34 U/L (0-32); Blood Urea Nitrogen 8 mg/dL (6-20); Calcium 8.4 mg/dL (8.5-10.5); Carbon Dioxide 23 mmol/L (22-29); Chloride 90 mmol/L (98-107); Globulin 3.6 g/dL (1.3-4.6); Glomerular Filtration Rate 130.6 mL/min (90-130); Glucose 135 mg/dL (65-115); Osmolality Calculated 262 mOsm/kg (285-295); Sodium 126 mmol/L (136-145); Total Bilirubin 0.2 mg/dL (0.15-1.2); Total Protein 7.1 g/dL (6.6-8.7)
[2023-11-01] MEDS: enoxaparin 40 mg/0.4 mL Syringe SUBCUT (16:30)
[2023-11-01] MEDS: amlodipine 5 mg Tablet PO (16:31)
[2023-11-01] MEDS: FUROsemide 40 mg Tablet PO (16:31)
[2023-11-01] MEDS: cefTRIAXone 1,000 MG in sodium chloride 0.9% (plus) 50 ML 100 MG IV (16:31)
--- NOTE | 2023-11-01 22:05 | PC.NURSE ---
This nurse rounded on the pt at this time and was asked if she had any needs that this nurse could help her with. The pt stated all of my needs and questions are answered at this time. Pt denies any further needs at this time. pt has call light within reach and verbalized understanding to use it if she has any needs arise through the night at any time.
[2023-11-02] VITALS (25 sets, daily range): BP systolic 128–154; BP diastolic 74–89; PULSE 71–96; RESP 16–18; TEMP 36.3–37.2; O2SAT 87–97; BMI 28.5
[2023-11-02] MEDS: levalbuterol 0.63 mg/3 mL Neb INHALATION ×7 (00:25→23:48)
[2023-11-02] MEDS: ipratropium 0.5 mg/2.5 mL Neb INHALATION ×7 (00:25→23:48)
[2023-11-02] MEDS: oxyCODONE 5 mg IR Tab/Cap PO ×4 (02:54→22:45)
[2023-11-02] MEDS: ondansetron 2 mg/ML SDV 2 mL 4 MG IVP ×2 (02:55→12:40)
[2023-11-02 03:15] LABS: Basophils % 0.1 %; Lymphocytes # 0.6 10^3/uL (0.8-4.8); Lymphocytes % 7.4 %; Mean Corpuscular HGB Conc 31.5 g/dL (30-55); Mean Corpuscular Hemoglobin 28.1 pg (27-33); Mean Corpuscular Volume 89.2 fl (85-98); Mean Platelet Volume 9.7 fL (7.4-10.4); Monocytes # 1.2 10^3/uL (0.2-0.9); Neutrophils # 5.82 10^3/uL (1.8-7.7); Neutrophils % 75.7 %; Nucleated Red Blood Cells % 0 %; Platelet Count 424 10^3/cmm (157-399); Red Blood Count 3.81 10^6/uL (3.85-5.65); Red Cell Distribution Width 17.5 % (12.1-15.1); White Blood Count 7.69 10^3/uL (3.29-11.43)
[2023-11-02 03:34] LABS: Alanine Aminotransferase 22 U/L (0-33); Albumin Level 3.4 g/dL (3.5-5.2); Alkaline Phosphatase 95 U/L (35-105); Anion Gap 14.2 (5-19); Aspartate Amino Transferase 31 U/L (0-32); Blood Urea Nitrogen 8 mg/dL (6-20); Calcium 8.3 mg/dL (8.5-10.5); Carbon Dioxide 27 mmol/L (22-29); Chloride 92 mmol/L (98-107); Globulin 3.3 g/dL (1.3-4.6); Glucose 127 mg/dL (65-115); Osmolality Calculated 270 mOsm/kg (285-295); Potassium 3.2 mmol/L (3.5-5.1); Sodium 130 mmol/L (136-145); Total Bilirubin 0.2 mg/dL (0.15-1.2); Total Protein 6.7 g/dL (6.6-8.7)
[2023-11-02] MEDS: budesonide 0.5 mg/2 mL Neb INHALATION ×2 (07:18→20:12)
[2023-11-02] MEDS: fluoxetine 20 mg Capsule 40 MG PO ×2 (08:03→17:35)
[2023-11-02] MEDS: pantoprazole DR 40 mg Tablet PO (08:03)
[2023-11-02] MEDS: levoFLOXacin 750 mg Tablet PO (08:03)
[2023-11-02] MEDS: methylPREDNISolone sod succ 40 mg/mL INJ IVP ×2 (08:03→17:36)
[2023-11-02] MEDS: amlodipine 5 mg Tablet PO (08:03)
[2023-11-02] MEDS: potassium chloride ER 20 mEq Tablet 40 MEQ PO (10:35)
--- NOTE | 2023-11-02 12:21 | USCV_ITS ---
Patricia East Age: 52 Gender: F : 1970 Exam Date: 11/02/2023 15:27 Ordering Phys: Kenroy Adamson MD Technologist: Mann Thomas [place] [facility] [place] BP: 141 / 86 HR: 87 Rhythm: Sinus Technical Quality: Suboptimal MEASUREMENTS (Male / Female) Normal Values 2D ECHO LVOT Diameter 2.0 cm LV Ejection Fraction MOD 2C 67.3 % LV Ejection Fraction 2C AL 67.2 % LA Diameter 3.3 cm LA Width 3.0 cm LA Height 3.8 cm RA Width 2.7 cm RA Height 3.6 cm Aorta at Sinotubular Diameter 2.1 cm IVC Diameter 1.4 cm M-MODE Aortic Annulus Diameter 2.2 cm LA Ao Ratio MM 1.2 MV E Point Septal Separation 0.3 cm DOPPLER AV Peak Velocity 130.0 cm/s LVOT Peak Velocity 103.0 cm/s AV Area Cont Eq vti 2.5 cm squared AV Area Cont Eq pk 2.5 cm squared MV Peak Velocity 92.0 cm/s MV Area PHT 4.6 cm squared Mitral E to A Ratio 0.7 MV E' Velocity 30.5 cm/s Mitral E to MV E' Ratio 6.1 Mitral E to LV E' Lateral Ratio 6.8 Mitral E to LV E' Septal Ratio 5.5 TR Peak Velocity 229.5 cm/s TR Peak Gradient 21.1 mmHg TR Mean Velocity 172.2 cm/s TR Mean Gradient 12.8 mmHg TR Velocity Time Integral 49.1 cm Right Atrial Pressure 3.0 mmHg Pulmonary Artery Systolic Pressu 24.1 mmHg PV Peak Velocity 100.3 cm/s RV Acceleration Time 0.1 s RV Ejection Time 0.3 s RV AcT/ET 0.4 FINDINGS Left Ventricle Normal left ventricular size, systolic function and wall thickness, with no regional wall motion abnormalities. Grade I/IV diastolic dysfunction (abnormal relaxation filling pattern), normal to mildly elevated filling pressures. Left ventricular ejection fraction is estimated at 65 %. Right Ventricle Normal right ventricular size and systolic function. Normal right ventricular systolic pressure. Right Atrium The right atrium is normal in size. Left Atrium The left atrium is normal in size. Mitral Valve Structurally normal mitral valve without significant stenosis or prolapse. There is no mitral regurgitation. Aortic Valve Structurally normal aortic valve without significant sclerosis or stenosis. There is no aortic regurgitation. Tricuspid Valve Structurally normal tricuspid valve. Mild tricuspid valve regurgitation. Pulmonic Valve Pulmonic valve not well visualized. Pericardium Normal pericardium without effusion. Aorta Normal ascending aorta dimension. IVC The inferior vena cava appears normal. CONCLUSIONS Normal left ventricular size, systolic function and wall thickness, with no regional wall motion abnormalities. Grade I/IV diastolic dysfunction (abnormal relaxation filling pattern), normal to mildly elevated filling pressures. Left ventricular ejection fraction is estimated at 65 %. There are no prior echocardiogram studies to compare. Dr. Carlos Sykes MD (Electronically Signed) Final Date: 03 November 2023 08:21 S
[2023-11-02] MEDS: FUROsemide 40 mg Tablet PO (12:40)
[2023-11-02] MEDS: morphine 4 mg/mL SDV 1 mL 1 MG IVP ×2 (13:40→20:56)
--- NOTE | 2023-11-02 15:34 | P.PN_ITS ---
Subjective 2 Subjective: No acute events overnight. Patient has been saturating well on 2 L. Plan was to discharge today but desaturated down to low 80s on ambulation requiring up to 5 L. Seen with multiple family members at bedside. Denies any nausea, vomiting, headache. Vitals/I&O/Wt Last Vital Signs Temp 98.0 F 11/02/23 10:53 Pulse 89 11/02/23 14:00 Resp 17 11/02/23 13:40 BP 141/86 11/02/23 10:53 Pulse Ox 93 11/02/23 11:14 O2 Del Method Nasal Cannula 11/02/23 11:14 O2 Flow Rate 2 11/02/23 11:14 11/02/23 11/02/23 11/02/23 06:59 14:59 22:59 Intake Total 770 / 770 Balance 770 / 770 Weight last 48 hrs Weight 77.791 kg Weight 77.292 kg Weight 79.379 kg Weight 78.982 kg Physical Exam 2 Narrative: General: No acute distress, AO x3 HEENT: PERRLA, pupils bilaterally equal and reactive Chest: Bilateral bronchial breath sounds all over lung abraham with occasional rhonchi all over with coarse crackles more so in right and left CVS: S1-S2 regular, no murmurs, no tachycardia, no gallops, no rubs Abdomen: Soft, nontender, no organomegaly, bowel sounds present Neuro: No focal deficits, no facial deformity, AO x3, power 5/5 in all limbs Data 11/02/23 03:05 11/02/23 03:05 A&P Assessment and plan (1) Respiratory failure: Most likely in setting of COPD exacerbation. CT chest results appreciated consistent with pneumonitis. Patient chronic smoker but denies any vaping. Patient having mild tachycardia. Switch DuoNebs to ipratropium, Xopenex every 4 hour, Pulmicort twice daily. Continue with Solu-Medrol 40 mg every 6 hourly. Will plan to wean within next 24 hours Oxygen supplementation keeping saturation over 88%. 40 mg oral Lasix. Respiratory viral panel negative, sputum culture not yet collected, MRSA pending, urine Legionella and bacterial antigen negative. Continue with empiric IV ceftriaxone and oral Levaquin for now. Will de- escalate as per result of sputum culture. (2) Acute pneumonitis: (3) Acute exacerbation of chronic obstructive airways disease: Plan Hyponatremia: Improving. Patient asymptomatic. Continue to monitor daily. If needed will start on oral salt tablets. Full code Cardiac diet Protonix for PUD prophylaxis Lovenox for DVT prophylaxis Plan for the day: We will hold off on discharge. Continue with nebulization treatment and Solu-Medrol 40 mg IV twice daily. Repeat Lasix 40 mg orally. Replete potassium 40 mEq orally. Check echocardiogram for RV functions. Oxygen supplementation keeping saturation over 88%. Blood pressure is better controlled. Continue with amlodipine 5 mg oral daily for now. Discussed the plan in detail with patient and patient's family members at bedside. Attestations 2 Medical Necessity Statement*: Requires further hospitalization for management of hypoxic respiratory failure in setting of COPD exacerbation and pneumonitis Diagnoses Respiratory failure J96.90 Acute pneumonitis J98.4 Acute exacerbation of chronic obstructive airways disease J44.1
[2023-11-02] MEDS: enoxaparin 40 mg/0.4 mL Syringe SUBCUT (16:02)
[2023-11-02] MEDS: cefTRIAXone 1,000 MG in sodium chloride 0.9% (plus) 50 ML 100 MG IV (16:02)
[2023-11-02] MEDS: BuSPIRONE 10 mg Tablet PO (16:17)
[2023-11-03] VITALS (21 sets, daily range): BP systolic 121–160; BP diastolic 77–98; PULSE 67–105; RESP 16–20; TEMP 36.3–36.7; O2SAT 82–98
[2023-11-03] MEDS: morphine 4 mg/mL SDV 1 mL 1 MG IVP (03:28)
[2023-11-03] MEDS: ipratropium 0.5 mg/2.5 mL Neb INHALATION ×5 (04:33→19:44)
[2023-11-03] MEDS: levalbuterol 0.63 mg/3 mL Neb INHALATION ×5 (04:33→19:44)
[2023-11-03] MEDS: oxyCODONE 5 mg IR Tab/Cap PO ×4 (04:53→23:54)
[2023-11-03] MEDS: ondansetron 2 mg/ML SDV 2 mL 4 MG IVP ×2 (06:14→15:15)
[2023-11-03] MEDS: budesonide 0.5 mg/2 mL Neb INHALATION ×2 (07:43→19:44)
[2023-11-03] MEDS: amlodipine 5 mg Tablet PO (08:42)
[2023-11-03] MEDS: pantoprazole DR 40 mg Tablet PO (08:42)
[2023-11-03] MEDS: levoFLOXacin 750 mg Tablet PO (08:42)
[2023-11-03] MEDS: methylPREDNISolone sod succ 40 mg/mL INJ IVP ×2 (08:43→17:59)
[2023-11-03] MEDS: fluoxetine 20 mg Capsule 40 MG PO ×2 (08:45→17:59)
--- NOTE | 2023-11-03 14:32 | P.PN_ITS ---
Subjective 2 Subjective: updated family at bedside pt on 2L at this time feeling slightly better echo shows diastolic dysfunction Vitals/I&O/Wt Last Vital Signs Temp 98.1 F 11/03/23 12:00 Pulse 92 11/03/23 12:00 Resp 18 11/03/23 12:00 BP 131/77 11/03/23 12:00 Pulse Ox 98 11/03/23 12:00 O2 Del Method Nasal Cannula 11/03/23 12:00 O2 Flow Rate 3 11/03/23 11:25 11/02/23 11/03/23 11/03/23 22:59 06:59 14:59 Intake Total 50 / 820 480 / 480 Output Total 0 / 0 0 / 0 Balance 50 / 820 0 / 820 480 / 480 Weight last 48 hrs Weight 78.925 kg Weight 77.111 kg Weight 77.791 kg Weight 77.292 kg Physical Exam 2 Narrative: General: No acute distress, AO x3 HEENT: PERRLA, pupils bilaterally equal and reactive Chest: Bilateral bronchial breath sounds all over lung abraham with occasional rhonchi all over with minimal coarse crackles more so in right and left CVS: S1-S2 regular, no murmurs, no tachycardia, no gallops, no rubs Abdomen: Soft, nontender, no organomegaly, bowel sounds present Neuro: No focal deficits, no facial deformity, AO x3, power 5/5 in all limbs Data 11/02/23 03:05 11/02/23 03:05 A&P Assessment and plan (1) Respiratory failure: Most likely in setting of COPD exacerbation. CT chest results appreciated consistent with pneumonitis. Patient chronic smoker but denies any vaping. Patient having mild tachycardia. Switch DuoNebs to ipratropium, Xopenex every 4 hour, Pulmicort twice daily. Continue with Solu-Medrol 40 mg every 6 hourly. Will plan to wean within next 24 hours Oxygen supplementation keeping saturation over 88%. 40 mg oral Lasix. Respiratory viral panel negative, sputum culture not yet collected, MRSA pending, urine Legionella and bacterial antigen negative. Continue with empiric IV ceftriaxone and oral Levaquin for now. Will de- escalate as per result of sputum culture. (2) Acute pneumonitis: (3) Acute exacerbation of chronic obstructive airways disease: Plan Hyponatremia: Improving. Patient asymptomatic. Continue to monitor daily. If needed will start on oral salt tablets. Full code Cardiac diet Protonix for PUD prophylaxis Lovenox for DVT prophylaxis Plan for the day: Continue with nebulization treatment and Solu-Medrol 40 mg IV twice daily. Repeat Lasix 40 mg orally. Echo complete. Diastolic dysfunction. Normal left ventricular size, systolic function and wall thickness, with no regional wall motion abnormalities. Grade I/IV diastolic dysfunction (abnormal relaxation filling pattern), normal to mildly elevated filling pressures. Left ventricular ejection fraction is estimated at 65 %. Oxygen supplementation keeping saturation over 88%. Blood pressure is better controlled. Continue with amlodipine 5 mg oral daily for now. Discussed the plan in detail with patient and patient's family members at bedside. Most likely plan for DC in AM Attestations 2 Medical Necessity Statement*: Requires further hospitalization for management of hypoxic respiratory failure in setting of COPD exacerbation and pneumonitis Coding Level of Care Code Acute Code for [facility] Fwd Diagnoses Respiratory failure J96.90 Acute pneumonitis J98.4 Acute exacerbation of chronic obstructive airways disease J44.1
[2023-11-03] MEDS: cefTRIAXone 1,000 MG in sodium chloride 0.9% (plus) 50 ML 100 MG IV (15:15)
[2023-11-03] MEDS: enoxaparin 40 mg/0.4 mL Syringe SUBCUT (15:15)
[2023-11-03] MEDS: FUROsemide 10 mg/mL SDV 2mL 20 MG IVP (15:15)
[2023-11-03 16:26] LABS: Anion Gap 15.8 (5-19); Blood Urea Nitrogen 7 mg/dL (6-20); Calcium 8.8 mg/dL (8.5-10.5); Carbon Dioxide 28 mmol/L (22-29); Chloride 84 mmol/L (98-107); Creatinine Clr Calc Pharmacy 139.7613; Glomerular Filtration Rate 130.6 mL/min (90-130); Glucose 144 mg/dL (65-115); Osmolality Calculated 259 mOsm/kg (285-295); Potassium 3.8 mmol/L (3.5-5.1); Sodium 124 mmol/L (136-145)
[2023-11-03 21:30] LABS: Urine Random Sodium < 10 mmol/L
[2023-11-04] VITALS (11 sets, daily range): BP systolic 102–136; BP diastolic 68–79; PULSE 74–90; RESP 16–18; TEMP 36.4–36.7; O2SAT 84–100; BMI 28.3
[2023-11-04] MEDS: levalbuterol 0.63 mg/3 mL Neb INHALATION ×3 (00:41→10:00)
[2023-11-04] MEDS: ipratropium 0.5 mg/2.5 mL Neb INHALATION ×3 (00:41→10:00)
[2023-11-04 06:06] LABS: Basophils % 0.1 %; Hematocrit 33.9 % (36-47); Lymphocytes # 1.5 10^3/uL (0.8-4.8); Lymphocytes % 16.2 %; Mean Corpuscular Hemoglobin 28.5 pg (27-33); Mean Corpuscular Volume 86.3 fl (85-98); Mean Platelet Volume 9.5 fL (7.4-10.4); Monocytes # 1.7 10^3/uL (0.2-0.9); Monocytes % 18.1 %; Neutrophils # 5.86 10^3/uL (1.8-7.7); Neutrophils % 64.3 %; Nucleated Red Blood Cells % 0 %; Platelet Count 486 10^3/cmm (157-399); Red Blood Count 3.93 10^6/uL (3.85-5.65); Red Cell Distribution Width 16.8 % (12.1-15.1); White Blood Count 9.12 10^3/uL (3.29-11.43)
[2023-11-04 06:23] LABS: Anion Gap 13.1 (5-19); Blood Urea Nitrogen 6 mg/dL (6-20); Calcium 8.3 mg/dL (8.5-10.5); Carbon Dioxide 29 mmol/L (22-29); Chloride 92 mmol/L (98-107); Glucose 151 mg/dL (65-115); Magnesium 2.1 mg/dL (1.7-2.3); Osmolality Calculated 273 mOsm/kg (285-295); Potassium 3.1 mmol/L (3.5-5.1); Sodium 131 mmol/L (136-145)
[2023-11-04] MEDS: pantoprazole DR 40 mg Tablet PO (08:56)
[2023-11-04] MEDS: fluoxetine 20 mg Capsule 40 MG PO (08:56)
[2023-11-04] MEDS: amlodipine 5 mg Tablet PO (08:56)
[2023-11-04] MEDS: potassium chloride ER 20 mEq Tablet 40 MEQ PO (09:36)
[2023-11-04] MEDS: oxyCODONE 5 mg IR Tab/Cap PO ×2 (09:36→13:28)
[2023-11-04] MEDS: budesonide 0.5 mg/2 mL Neb INHALATION (09:59)
[2023-11-04] MEDS: methylPREDNISolone sod succ 40 mg/mL INJ IVP (10:12)
--- NOTE | 2023-11-04 11:14 | PM.DCS ---
Discharge Providers Date of Admission: 10/30/23 13:07 Date of Discharge: November 04, 2023 Attending Provider at Admission: Kenroy Adamson MD Attending Provider at Discharge: Dang Garcia MD Primary Care Provider: Tona Head APN Diagnoses at Discharge Discharge Diagnosis (1) Respiratory failure: Status: Acute (2) Acute pneumonitis: Status: Acute (3) Acute exacerbation of chronic obstructive airways disease: Status: Acute Reason for Visit Reason for Visit: sob Brief History: Patricia East is a 52 year old female with past medical COPD, bipolar disorder who presents to the ER today because of worsening difficulty breathing over the last few weeks gotten acutely worse,. Patient initiated having expectoration before but none currently. Usually not on oxygen. In the ER required up to 4 L to maintain saturation of 90%. Denies any nausea, vomiting, headache, fever, sick contacts, recent travel or past hospitalization because of difficulty in breathing. States she smokes slightly more than a pack a day for many years. Hospital Course Hospital Course Patient presented with shortness of breath difficulty breathing that was going on for the last few weeks but acutely worsened. Usually not on oxygen at home in the ER required up to 4 L. Is an active smoker. She was treated for COPD exacerbation and diastolic CHF. She was diuresed with Lasix during hospital stay. Echo showed grade 1 x 4 diastolic dysfunction. Normal EF. She was also treated with IV steroids, Pulmicort. Patient covered with ceftriaxone and Levaquin. Antigens for Legionella Streptococcus negative.. Blood culture negative to date. Sputum sample not obtained as patient not expectorating. Patient will be sent home on Augmentin x 7 days total as there was also concern of underlying pneumonitis. CTA done on admission ruled out PE and showed hazy bilateral groundglass infiltrates in the perihilar regions in both lower lobes. Paraseptal emphysematous changes subpleural honeycombing seen. She has qualified for 3 L nasal cannula which she will be sent home on. Patient will get a follow-up with pulmonology and cardiology as an outpatient. Physical Exam Narrative: General: No acute distress, AO x3 HEENT: PERRLA, pupils bilaterally equal and reactive Chest: Bilateral bronchial breath sounds all over lung abraham with occasional rhonchi CVS: S1-S2 regular, no murmurs, no tachycardia, no gallops, no rubs Abdomen: Soft, nontender, no organomegaly, bowel sounds present Neuro: No focal deficits, no facial deformity, AO x3 Discharge Data Studies Completed and Pending Completed Studies During Hospitalization Category Date Time Status CTA chest [CT angio chest PE protcl [id number]] Stat Cat Scan 10/30/23 11:03 Completed XR chest 1V portable [id number] Stat Exams 10/30/23 10:12 Completed CV. echo complete* [id number] Routine Ultrasound 11/02/23 12:21 Completed Pending at discharge Category Date Time Status Blood Culture Stat Lab 10/30/23 13:32 Results Sputum Culture and Gram Stain Stat Lab 10/30/23 15:25 Uncollected Laboratory Results WBC 9.12 10^3/uL (3.29-11.43) 11/04/23 05:50 RBC 3.93 10^6/uL (3.85-5.65) 11/04/23 05:50 Hgb 11.20 g/dL (11.27-16.99) L 11/04/23 05:50 Hct 33.9 % (36-47) L 11/04/23 05:50 MCV 86.3 fl (85-98) 11/04/23 05:50 MCH 28.5 pg (27-33) 11/04/23 05:50 MCHC 33.0 g/dL (30-55) 11/04/23 05:50 RDW 16.8 % (12.1-15.1) H 11/04/23 05:50 Plt Count 486 10^3/cmm (157-399) H 11/04/23 05:50 MPV 9.5 fL (7.4-10.4) 11/04/23 05:50 Neut % (Auto) 64.3 % 11/04/23 05:50 Lymph % (Auto) 16.2 % 11/04/23 05:50 [place]ton % (Auto) 18.1 % 11/04/23 05:50 Eos % (Auto) 0.0 % 11/04/23 05:50 Baso % (Auto) 0.1 % 11/04/23 05:50 Neut # (Auto) 5.86 10^3/uL (1.8-7.7) 11/04/23 05:50 Lymph # (Auto) 1.5 10^3/uL (0.8-4.8) 11/04/23 05:50 [place] # (Auto) 1.7 10^3/uL (0.2-0.9) H 11/04/23 05:50 Eos # (Auto) 0.0 10^3/uL (0.0-0.8) 11/04/23 05:50 Baso # (Auto) 0.0 10^3/uL (0.0-0.1) 11/04/23 05:50 Nucleated RBC % (auto) 0 % 11/04/23 05:50 Nucleated RBCs # 0.0 /100WBC 11/04/23 05:50 D-Dimer 1.85 ug/mLFEU (0-0.59) H 10/30/23 10:32 Sodium 131 mmol/L (136-145) L 11/04/23 05:50 Potassium 3.1 mmol/L (3.5-5.1) L 11/04/23 05:50 Chloride 92 mmol/L (98-107) L 11/04/23 05:50 Carbon Dioxide 29 mmol/L (22-29) 11/04/23 05:50 Anion Gap 13.1 (5-19) 11/04/23 05:50 BUN 6 mg/dL (6-20) 11/04/23 05:50 Creatinine 0.4 mg/dL (0.5-0.9) L 11/04/23 05:50 GFR Calculation 169.0 mL/min (90-130) H 11/04/23 05:50 Glucose 151 mg/dL (65-115) H 11/04/23 05:50 Estimat Average Glucose 88 10/31/23 05:54 Hemoglobin A1c 4.7 % (4.0-6.0) 10/31/23 05:54 Calculated Osmolality 273 mOsm/kg (285-295) L 11/04/23 05:50 Calcium 8.3 mg/dL (8.5-10.5) L 11/04/23 05:50 Phosphorus 2.4 mg/dL (2.5-4.5) L 10/31/23 05:54 Magnesium 2.1 mg/dL (1.7-2.3) 11/04/23 05:50 Iron 15 ug/dL (37-145) L 10/30/23 12:30 TIBC 251 mcg/dl 10/30/23 12:30 % Saturation 5.9 % (20-50) L 10/30/23 12:30 Unsat Iron Binding 236 ug/dL (112-347) 10/30/23 12:30 Total Bilirubin 0.2 mg/dL (0.15-1.2) 11/02/23 03:05 AST 31 U/L (0-32) 11/02/23 03:05 ALT 22 U/L (0-33) 11/02/23 03:05 Alkaline Phosphatase 95 U/L (35-105) 11/02/23 03:05 Troponin T Baseline 9 ng/L (0-10) 10/30/23 10:32 Troponin T 120 Minute 6.00 ng/L (0-10) 10/30/23 12:30 Delta Troponin T -3.00 ABS# (0-10) L 10/30/23 12:30 Troponin T Hi Sens 6Hr 6.00 ng/L (0-10) 10/30/23 17:32 Troponin T Hi Sens 6Hr Delta -3.00 ng/L (0-12) L 10/30/23 17:32 NT-Pro-B Natriuret Pep 441 pg/mL (0-125) H 10/30/23 10:32 Total Protein 6.7 g/dL (6.6-8.7) 11/02/23 03:05 Albumin 3.4 g/dL (3.5-5.2) L 11/02/23 03:05 Globulin 3.3 g/dL (1.3-4.6) 11/02/23 03:05 Triglycerides 82 mg/dL (0-150) 10/31/23 05:54 Cholesterol 135 mg/dL (0-200) 10/31/23 05:54 LDL Cholesterol, Calc 46 mg/dL (50-129) L 10/31/23 05:54 HDL Cholesterol 73 mg/dL (60-100) 10/31/23 05:54 LDL/HDL Ratio 0.63 RATIO (0.00-3.22) 10/31/23 05:54 Cholesterol/HDL Ratio 1.85 mg/dL (0.0-4.40) 10/31/23 05:54 Vitamin B12 382 pg/mL (232-1245) 10/30/23 12:30 Folate 11.1 ng/mL (4.8-37.3) 10/31/23 05:54 Procalcitonin 3.46 ng/mL (0-0.5) H 10/31/23 05:54 TSH 0.96 uIU/mL (0.27-4.20) 10/30/23 12:30 Urine Color Yellow (Yellow) 10/30/23 21:34 Urine Appearance Clear (CLEAR) 10/30/23 21:34 Urine pH 7 (5-7) 10/30/23 21:34 Ur Specific [place] 1.005 (1.005-1.030) 10/30/23 21:34 Urine Protein Neg (Negative) 10/30/23 21:34 Urine Glucose (UA) Norm (Normal) 10/30/23 21:34 Urine Ketones Negative (Negative) 10/30/23 21:34 Urine Blood Neg (Negative) 10/30/23 21:34 Urine Nitrate Negative (Negative) 10/30/23 21:34 Urine Bilirubin Neg (Negative) 10/30/23 21:34 Urine Urobilinogen Norm mg/dL (Negative) 10/30/23 21:34 Ur Leukocyte Esterase Negative (Negative) 10/30/23 21:34 Ur Random Sodium < 10 mmol/L 11/03/23 20:37 Ur Random Potassium 18 mmol/L 10/31/23 16:05 Ur Random Chloride 48 mmol/L 10/31/23 16:05 Adenovirus (PCR) Not detected (NOT DETECT) 10/30/23 17:50 C. pneumoniae DNA (PCR) Not detected (NOT DETECT) 10/30/23 17:50 Coronavirus 229E (PCR) Not detected (NOT DETECT) 10/30/23 17:50 Human Metapneumovir PCR Not detected (NOT DETECT) 10/30/23 17:50 Influenza A (H1) PCR Not detected (NOT DETECT) 10/30/23 17:50 Influ A (H1/09) PCR Not detected (NOT DETECT) 10/30/23 17:50 Influenza A (H3) PCR Not detected (NOT DETECT) 10/30/23 17:50 Influenza Type A Ag negative (Negative) 10/30/23 12:21 Influenza Type A (PCR) Not detected (NOT DETECT) 10/30/23 17:50 Influenza Type B Ag negative (Negative) 10/30/23 12:21 Influenza Type B (PCR) Not detected (NOT DETECT) 10/30/23 17:50 M. pneumoniae (PCR) Not detected (NOT DETECT) 10/30/23 17:50 Parainfluenza 1 (PCR) Not detected (NOT DETECT) 10/30/23 17:50 Parainfluenza 2 (PCR) Not detected (NOT DETECT) 10/30/23 17:50 Parainfluenza 3 (PCR) Not detected (NOT DETECT) 10/30/23 17:50 Parainfluenza 4 (PCR) Not detected (NOT DETECT) 10/30/23 17:50 RSV Type A (PCR) Not detected (NOT DETECT) 10/30/23 17:50 RSV Type B (PCR) Not detected (NOT DETECT) 10/30/23 17:50 Entero/Rhino (PCR) Not detected (NOT DETECT) 10/30/23 17:50 SARS-CoV-2 (PCR) Not detected (NOT DETECT) 10/30/23 17:50 SARS-CoV-2 Ag (Rapid) negative (Negative) 10/30/23 12:21 MRSA (PCR) Not detected (NOT DETECTED) 10/30/23 15:31 Vitals Last Vital Signs Temp 98.1 F 11/04/23 08:00 Pulse 90 11/04/23 08:00 Resp 18 11/04/23 09:36 BP 126/79 11/04/23 08:00 Pulse Ox 91 11/04/23 08:00 O2 Del Method Nasal Cannula 11/04/23 08:00 O2 Flow Rate 3 11/04/23 08:00 Discharge Plan Discharge Patient Disposition: Home Condition: Stable Prescriptions: New doxycycline hyclate 100 mg tablet 100 mg PO BID 7 Days Qty: 14 0RF amlodipine 5 mg Tablet 5 mg PO DAILY Qty: 30 0RF prednisone 10 mg tablet See Rx Instructions .ROUTE .COMPLEX Qty: 30 0RF Rx Instructions: [id number],20mgx3,10mgx3 Continued fluoxetine 40 mg capsule 40 mg PO BID cetirizine 10 mg tablet 10 mg PO QAM buspirone 10 mg tablet 10 mg PO BID PRN (Reason: Anxiety) omeprazole 20 mg capsule,delayed release(DR/EC) 20 mg PO QAM albuterol sulfate 90 mcg/actuation Hfa Aerosol Inhaler 2 puff INHALATION QID PRN (Reason: Shortness Of Breath) topiramate 100 mg tablet 100 mg PO BEDTIME PRN (Reason: Headache) Excedrin Migraine 250-250-65 mg Tablet 2 tab PO Q6H PRN (Reason: Migraine Headache) Discharge Orders: Discharge Order (Routine); Ordered 11/04/23 Ordered By: Dang Garcia Referrals: Tona Head APN [Primary Care Provider] - 4-7 days Datar,Elia Car MD [Physician] - [address] M.D [Physician] - 2 weeks Discharge Diet: Cardiac Discharge Activity: Increase activity as tolerated and Oxygen as instructed Patient Instructions: Opioid Safety Discharge Attestations Time Spent in Discharge Care*: greater than 30 min Quality Metrics Clinical Quality Measures [ No reported AMI, CVA or VTE this stay] Coding Level of Care Code 70142 Total time (in minutes) for Discharge: 35 Diagnoses Respiratory failure J96.90 Acute pneumonitis J98.4 Acute exacerbation of chronic obstructive airways disease J44.1
== END 2023-11-04 15:23 | disposition home or self-care (01) | DRG 291 ==
LOC: ER 13:51 → MEDSURG 14:36
PROVIDERS: Admitting Provider Student in an Organized Health Care Education/Training Program; Emergency Provider Emergency Medicine; PCP Nurse Practitioner Family; Visit Provider Internal Medicine
DX: I50.30 Unspecified diastolic (congestive) heart failure (principal); J96.91 Respiratory failure, unspecified with hypoxia; J44.1 Chronic obstructive pulmonary disease with (acute) exacerbation; E87.1 Hypo-osmolality and hyponatremia; J98.4 Other disorders of lung; F17.210 Nicotine dependence, cigarettes, uncomplicated; J22 Unspecified acute lower respiratory infection; F31.9 Bipolar disorder, unspecified; F41.9 Anxiety disorder, unspecified; R00.0 Tachycardia, unspecified
CPT/HCPCS: 36415; 71045; 71275; 80048; 80053; 80061; 81003; 82436; 82607; 82746; 83036; 83540; 83550; 83735; 83880; 84100; 84133; 84145; 84300; 84443; 84484; 85025; 85378; 86403; 87040; 87426; 87449; 87486; 87581; 87633; 87635; 87641; 87804; 93005; 93306; 94640; 94664; 94760; 96365; 96367; 96372; 96375; 99285; J0456; J0696; J1650; J1940; J2270; J2405; J2920; J2930; J7030; J7050; J7614; J7626; J7644; Q9967

== ENCOUNTER → 2023-12-12 08:09 | Outpatient (BNVA) | payer MEDICAID, SELFPAY | PROVIDERS: PCP Nurse Practitioner Family; Visit Provider Internal Medicine Pulmonary Disease | DX: J43.9 Emphysema, unspecified (principal); Z09 Encounter for follow-up examination after completed treatment for conditions other than malignant neoplasm; I50.33 Acute on chronic diastolic (congestive) heart failure; Z71.6 Tobacco abuse counseling; F17.210 Nicotine dependence, cigarettes, uncomplicated | CPT/HCPCS: 99204 ==

== ENCOUNTER → 2023-12-22 14:52 | Outpatient (BNVA) | payer MEDICAID, SELFPAY | PROVIDERS: PCP Nurse Practitioner Family; Visit Provider Internal Medicine | DX: R07.9 Chest pain, unspecified (principal); I50.33 Acute on chronic diastolic (congestive) heart failure | CPT/HCPCS: 93005; 99204 ==

== ENCOUNTER 2024-01-13 10:03 | Outpatient (CLI) | payer MEDICAID, SELFPAY ==
[2024-01-13 10:54] VITALS: BMI 29.9
--- NOTE | 2024-01-13 10:54 | ECG_ITS ---
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 Interpretive Statements NAME OF STUDY: LEXISCAN SESTAMIBI STRESS TEST INDICATION: Chest Pain PROCEDURE: At the baseline, the EKG revealed normal sinus rhythm with a poor R wave progression. The baseline heart was 85 bpm with a blood pressue of 134/76 mm of Hg Lexiscan was infused over a period of 20 seconds. A total of 0.4 milligrams of Lexiscan was infused. The stress phase was continued for a total of 5 minutes. Heart rate at the end of the stress phase was 97 bpm with a blood pressure 141/89 mm of Hg. The EKG at the peak infusion revealed no significant changes. Sestamibi was injected 20 seconds after the Lexiscan infusion. Heart rate at the end of the recovery phase was 94 bpm with a blood pressure of 142/89 mm of Hg. CONCLUSION: 1. No significant EKG changes with the LexiScan infusion 2. No LexiScan induced chest pain or cardiac arrhythmia 3. Normal blood pressure and heart rate response 4. Sestamibi/sestamibi perfusion scan pending; see separate report. Electronically Signed On 01-19-2024 23:40:21 CDT by Mer Jacob M.D. [id number]
--- NOTE | 2024-01-13 10:55 | NMCV_ITS ---
NM chantel perf SPECT r/s* [id number] Patricia East Age: 53 Gender: F : 1970 Exam Date: 01/13/2024 11:40 Ordering Phys: Dany Way M.D ([email or web address]) Technologist: SHA Aviles Exam Location: [facility] Indications: CHEST PAIN STRESS TEST Please [facility] IMAGE PROTOCOL Rest/Stress 1 Lexiscan Day Radiopharmaceutical Dose (mCi) Administration Site Administered by Rest: Tc-99m 10.8 IV SHA Mcgovern Sestamibi Stress:Tc-99m 32.9 IV SHA Aviles Sestamijean-paul Rest: 13-Jan-2024 60 Discovery 630 Stress: 13-Jan-2024 30 Discovery 630 0.4mg Lexiscan. Supine position only as patient was unable to lay prone. SPECT RESULTS Technical Quality: Excellent Raw Data Analysis: Normal Image Corrections: No attenuation or motion correction applied Summed Stress Score: 0 Summed Rest Score: 0 Summed Difference Score: 0 PERFUSION FINDINGS Uniform myocardial tracer uptake with no significant perfusion abnormalities. FUNCTIONAL RESULTS (calculated via Gated SPECT) Stress Image LV EF (%): 86 Stress EDV (mL):76 TID: 0.89 Stress ESV (mL):11 FUNCTIONAL FINDINGS: Segmental wall motion analysis revealing no gross wall motion abnormalities IMPRESSIONS 1. Myocardial perfusion imaging revealing uniform myocardial tracer uptake with no significant perfusion abnormalities 2. Normal LV ejection fraction of 86%. 3. LV wall motion analysis revealing no gross wall motion abnormalities. 4. Normal LV volume Low probability for coronary ischemia, based on the above findings Dr Mer Jacob MD FACC (Electronically Signed) Final Date: 14 January 2024 13:23 S
[2024-01-13] MEDS: regadenoson 0.4 Mg/5 ml Syringe 0.400000000000000022 MG IVP (12:19)
[2024-01-13 12:41] VITALS: BP 146/72; PULSE 89
== END 2024-01-13 10:04 | disposition home or self-care (01) ==
LOC: CDL 10:04
PROVIDERS: PCP Nurse Practitioner Family; Visit Provider Internal Medicine
DX: R07.9 Chest pain, unspecified (principal); R06.02 Shortness of breath
CPT/HCPCS: 36415; 78452; 93017; 96374; A9500; J2785

== ENCOUNTER 2024-02-25 10:13 | Outpatient (CLI) | payer MEDICAID, SELFPAY ==
[2024-02-25 10:40] VITALS: PULSE 95; RESP 22; O2SAT 98
[2024-02-25] MEDS: albuterol 2.5 mg/3 mL Neb INHALATION (10:40)
[2024-02-25 10:45] VITALS: PULSE 101
== END 2024-02-25 10:14 | disposition home or self-care (01) ==
LOC: RT 10:14
PROVIDERS: PCP Nurse Practitioner Family; Visit Provider Internal Medicine Pulmonary Disease
DX: J43.9 Emphysema, unspecified (principal); R07.9 Chest pain, unspecified; R06.02 Shortness of breath; Z87.891 Personal history of nicotine dependence
CPT/HCPCS: 94060; 94618; 94729

== ENCOUNTER → 2024-02-27 10:52 | Outpatient (BNVA) | payer MEDICAID, SELFPAY | PROVIDERS: PCP Nurse Practitioner Family; Visit Provider Internal Medicine Pulmonary Disease | DX: Z09 Encounter for follow-up examination after completed treatment for conditions other than malignant neoplasm (principal); I50.33 Acute on chronic diastolic (congestive) heart failure; J43.8 Other emphysema; Z71.6 Tobacco abuse counseling; J44.1 Chronic obstructive pulmonary disease with (acute) exacerbation; J98.4 Other disorders of lung; Z87.891 Personal history of nicotine dependence; Z99.81 Dependence on supplemental oxygen | CPT/HCPCS: 99214 ==

== ENCOUNTER 2024-04-12 19:47 | Emergency (ER) | payer SELFPAY ==
[2024-04-12 19:55] VITALS: BP 108/65; PULSE 77; RESP 16; TEMP 36.8; O2SAT 100
--- NOTE | 2024-04-12 21:49 | ECG_ITS ---
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 Measurements Intervals [place] Rate: 84 P: 69 WV: 150 QRS: 29 QRSD: 85 T: 39 QT: 441 QTc: 523 Interpretive Statements SINUS RHYTHM PROLONGED QT INTERVAL Compared to ECG 12/22/2023 15:12:53 Prolonged QT interval now present Electronically Signed On 04-13-2024 8:29:[address] Dany [address] M.D. [email or web address] [email or web address] [email or web address] [email or web address] [id number]
== END 2024-04-12 22:01 | disposition left against medical advice (07) ==
PROVIDERS: Emergency Provider Family Medicine; PCP Nurse Practitioner Family
DX: Z53.21 Procedure and treatment not carried out due to patient leaving prior to being seen by health care provider (principal)
CPT/HCPCS: 93005